=== PATIENT | female | born 1950 | race Caucasian/White ===

== ENCOUNTER 2017-02-15 06:00 | Inpatient (IN) | payer OTHER ==
[~2017-02-15] VITALS: Ht 167.6 cm; Wt 59.9 kg
[2017-02-15 06:00] VITALS: BP 125/70
[~2017-02-15 06:00] MED LIST: NKM
--- NOTE | 2017-02-15 06:42 | Emergency Room Report ---
History of Present Illness General Chief Complaint: Syncope Source: Patient (ROXANA RICH M.D.) Present Illness HPI This is a 66-year-old female with no past medical history. She hasn't seen a doctor for over a couple of years. She present with chief complaint of syncope. Said she got up tonight to go the bathroom and had a syncopal episode. No injury. Does not remember what happened. Just felt weak now. No fever or chills. No nausea no vomiting. No chest pain. (ROXANA RICH M.D.) Allergies: Coded Allergies: No Known Allergies (Unverified , 02/15/17) Patient History Past Medical History: see triage record, old chart reviewed Past Surgical History: other Pertinent Family History: none Social History: Denies: smoking Now: No Immunizations: other Reviewed Nursing Documentation: PMH: Agreed, PSxH: Agreed (ROXANA RICH M.D.) Nursing Documentation-PMH Past Medical History: No Stated History (ROXANA RICH M.D.) Review of Systems Eye: Denies: eye pain, blurred vision ENT: Denies: ear pain, nose congestion, throat swelling Respiratory: Denies: cough, shortness of breath Cardiovascular: Denies: chest pain, palpitations Gastrointestinal: Denies: abdominal pain, diarrhea, nausea, vomiting Musculoskeletal: Denies: back pain, joint pain Skin: Denies: rash Neurological: Denies: headache, numbness Endocrine: Denies: increased thirst, increased urine Hematologic/Lymphatic: Denies: easy bruising All Other Systems: negative except mentioned in HPI (ROXANA RICH M.D.) Physical Exam Vital Signs Date Time Temp Pulse Resp B/P (MAP) Pulse Ox O2 Delivery O2 Flow Rate FiO2 02/15/17 05:47 74 16 125/70 98 Room Air vitals normal Sp02 EP Interpretation: reviewed, normal General Appearance: well appearing, no apparent distress, alert Head: normocephalic, atraumatic Eyes: bilateral eye PERRL, bilateral eye EOMI ENT: hearing grossly normal, normal pharynx Neck: full range of motion, supple, no meningismus Respiratory: chest non-tender, lungs clear, normal breath sounds Cardiovascular #1: no murmur, irregularly irregular Gastrointestinal: normal bowel sounds, non tender, no mass, no organomegaly, no bruit, non-distended Musculoskeletal: back normal, gait/station normal, normal range of motion Psychiatric: mood/affect normal Skin: warm/dry (ROXANA RICH M.D.) Medical Decision Making Diagnostic Impression: Primary Impression: Syncope Qualified Codes: R55 - Syncope and collapse Additional Impression: Atrial fibrillation with normal ventricular rate ER Course Patient presents with syncope and has new-onset atrial fibrillation. Rate is controlled her blood pressure stable. Because of this will admit for further workup. No evidence of ACS, PE, dissection to name a few. I will sign this patient out to Dr. Alvarez. (ROXANA RICH M.D.) ER Course Hospital Course 66-year-old F presents ED s/p syncopal episode. Clinical course Patient initially seen and evaluated by Dr. Rich; please see his note for full history and physical labs reviewed- no leukocytosis, hemoglobin/hematocrit ok, electrolytes okay, troponins negative EKG-afib Chest x-ray- no acute process Case discussed with Dr. Cormier and he agreed to accept the patient to his service for further care and support I. I feel this is a highly complex case requiring extensive working including EKG/Rhythm strip, Xray/CT/US, Blood/urine lab work, repeat exams while in ED, and administration of strong opiates/narcotics for pain control, admission to hospital or close patient follow up. Diagnosis - syncope, afib with normal ventricular rate admitted to telemetry in serious condition Labs Test 02/15/17 06:20 White Blood Count 11.4 K/UL (4.8-10.8) Red Blood Count 4.01 M/UL (4.20-5.40) Hemoglobin 12.7 G/DL (12.0-16.0) Hematocrit 38.9 % (37.0-47.0) Mean Corpuscular Volume 97 FL (80-99) Mean Corpuscular Hemoglobin 31.6 PG (27.0-31.0) Mean Corpuscular Hemoglobin Concent 32.5 G/DL (32.0-36.0) Red Cell Distribution Width 13.0 % (11.6-14.8) Platelet Count 195 K/UL (150-450) Mean Platelet Volume 6.0 FL (6.5-10.1) Neutrophils (%) (Auto) 80.4 % (45.0-75.0) Lymphocytes (%) (Auto) 12.1 % (20.0-45.0) Monocytes (%) (Auto) 6.7 % (1.0-10.0) Eosinophils (%) (Auto) 0.5 % (0.0-3.0) Basophils (%) (Auto) 0.4 % (0.0-2.0) Sodium Level 140 MMOL/L (136-145) Potassium Level 3.7 MMOL/L (3.5-5.1) Chloride Level 104 MMOL/L (98-107) Carbon Dioxide Level 29 MMOL/L (21-32) Anion Gap 7 mmol/L (5-15) Blood Urea Nitrogen 17 mg/dL (7-18) Creatinine 0.7 MG/DL (0.55-1.30) Estimat Glomerular Filtration Rate > 60 mL/min (>60) Glucose Level 98 MG/DL (74-106) Calcium Level 7.6 MG/DL (8.5-10.1) Total Bilirubin 0.5 MG/DL (0.2-1.0) Aspartate Amino Transf (AST/SGOT) 32 U/L (15-37) Alanine Aminotransferase (ALT/SGPT) 29 U/L (12-78) Alkaline Phosphatase 91 U/L (46-116) Total Creatine Kinase 153 U/L (26-308) Creatine Kinase MB 1.9 NG/ML (0.0-3.6) Creatine Kinase MB Relative Index 1.2 Troponin I 0.001 ng/mL (0.000-0.056) Total Protein 6.8 G/DL (6.4-8.2) Albumin 3.7 G/DL (3.4-5.0) Globulin 3.1 g/dL Albumin/Globulin Ratio 1.2 (1.0-2.7) (ÁNGEL ALVAREZ M.D.) EKG Diagnostic Results Rate: normal Rhythm: other - A. fib ST Segments: no acute changes (ROXANA RICH M.D.) Rate: normal Rhythm: other - afib ST Segments: no acute changes ASA given to the pt in ED: No (ÁNGEL ALVAREZ M.D.) Rhythm Strip Diag. Results Rhythm Strip Time: 06:41 EP Interpretation: yes Rate: 62 Rhythm: no PVC's, no ectopy, other - Atrial fib (ROXANA RICH M.D.) EP Interpretation: yes Rhythm: NSR, no PVC's, no ectopy (ÁNGEL ALVAREZ M.D.) Chest X-Ray Diagnostic Results Chest X-Ray Diagnostic Results : Chest X-Ray Ordered: Yes # of Views/Limited/Complete: 1 View Indication: Other EP Interpretation: Yes Interpretation: no consolidation, no effusion, no pneumothorax, no acute cardiopulmonary disease Impression: No acute disease Electronically Signed by: MD JA Vinson TAO M.D.) Chest X-Ray Diagnostic Results : Chest X-Ray Ordered: Yes # of Views/Limited/Complete: 1 View Indication: Other - syncope EP Interpretation: Yes Interpretation: no consolidation, no effusion, no pneumothorax, no acute cardiopulmonary disease Impression: No acute disease Electronically Signed by: Electronically signed by Ángel Alvarez MD (ÁNGEL ALVAREZ M.D.) Last Vital Signs Date Time Temp Pulse Resp B/P (MAP) Pulse Ox O2 Delivery O2 Flow Rate FiO2 02/15/17 06:00 16 125/70 98 Room Air 02/15/17 05:47 74 Status: improved (ROXANA RICH M.D.) Status: improved (ÁNGEL ALVAREZ M.D.) Disposition: ADMITTED INPATIENT Condition: Serious ROXANA RICH M.D. Feb 15, 2017 06:42 ÁNGEL ALVAREZ M.D. Feb 15, 2017 09:14
[2017-02-15 06:54] LABS: BASOPHILS % (AUTO) 0.4 % (0.0-2.0); EOSINOPHILS % (AUTO) 0.5 % (0.0-3.0); HEMATOCRIT 38.9 % (37.0-47.0); HEMOGLOBIN 12.7 G/DL (12.0-16.0); LYMPHOCYTES % (AUTO) 12.1 % (20.0-45.0); MEAN CORPUSCULAR VOLUME 97 FL (80-99); MONOCYTES % (AUTO) 6.7 % (1.0-10.0); NEUTROPHILS % (AUTO) 80.4 % (45.0-75.0); PLATELET COUNT 195 K/UL (150-450); RED BLOOD COUNT 4.01 M/UL (4.20-5.40); WHITE BLOOD COUNT 11.4 K/UL (4.8-10.8)
[2017-02-15 07:04] LABS: ANION GAP 7 mmol/L (5-15); BLOOD UREA NITROGEN 17 mg/dL (7-18); CALCIUM 7.6 MG/DL (8.5-10.1); CARBON DIOXIDE 29 MMOL/L (21-32); CHLORIDE 104 MMOL/L (98-107); CREATININE 0.7 MG/DL (0.55-1.30); POTASSIUM 3.7 MMOL/L (3.5-5.1); SODIUM 140 MMOL/L (136-145)
[2017-02-15 07:24] LABS: ALANINE AMINOTRANSFERASE 29 U/L (12-78); ALBUMIN 3.7 G/DL (3.4-5.0); ALBUMIN/GLOBULIN RATIO 1.2 (1.0-2.7); ALKALINE PHOSPHATASE 91 U/L (46-116); ASPARTATE AMINO TRANSFERASE 32 U/L (15-37); BILIRUBIN,TOTAL 0.5 MG/DL (0.2-1.0); CKMB 1.9 NG/ML (0.0-3.6); CREATINE KINASE 153 U/L (26-308)
[2017-02-15 07:30] VITALS: BP 129/72
[2017-02-15] MEDS ORDERED: Acetaminophen 500mg (ES) tab ORAL ONE (08:15)
[2017-02-15 09:30] VITALS: BP 113/61
[2017-02-15] MEDS ORDERED: Lexiscan 0.4mg/5ml syringe IV PRN (11:15)
--- NOTE | 2017-02-15 11:16 | History & Physical ---
History and Physical History & Physicial Dictated for Int Med-Dr Cormier no. [id number]. IVETT CURRAN Feb 15, 2017 11:16
--- NOTE | 2017-02-15 11:33 | Diagnostic Imaging Report ---
Indication: Dyspnea Comparison: None A single view chest radiograph was obtained. Findings: No definite infiltrate or pulmonary vascular congestion identified. The heart is enlarged. The aorta is mildly enlarged consistent with atherosclerotic vascular disease. The bones are osteopenic. Impression: No acute disease
[2017-02-15 12:00] VITALS: BP 126/91
[2017-02-15] MEDS ORDERED: LORazepam 1mg tab ORAL PRN (12:00)
--- NOTE | 2017-02-15 12:49 | Cardiology Report ---
APPROVED REPORT EKG Measurement Heart [id number] Atrial fibrillation Rightward axis Incomplete right bundle branch block Abnormal ECG
[2017-02-15] MEDS: Aspirin Baby 81mg ORAL SCH (14:11)
[2017-02-15 16:00] VITALS: BP 110/59
--- NOTE | 2017-02-15 16:00 | History and Physical Report ---
DATE OF ADMISSION: 02/15/2017 CHIEF COMPLAINT: The patient is a 66-year-old female who presents with chief complaint of "I passed out." HISTORY OF PRESENT ILLNESS: The patient has history of "arrhythmia." The patient has been followed in [place]. The patient has been taking "natural medication." The patient states she takes some sort of drops for her arrhythmia. The patient was at home this morning approximately 5 a.m. The patient went to the restroom. The patient states she had a normal bowel movement. Then the patient was on the toilet, she began to feel dizzy. The patient states she was seen alternating light and darkness. The patient's daughter lives with her. The patient's daughter states the patient never lost consciousness. The patient was talking the whole time. The patient did not hit the floor. EMS was called. The patient is admitted to [facility] for near syncopal episode. PAST MEDICAL HISTORY: Significant for "arrhythmia," which was diagnosed in [place] in April 2016. PAST SURGICAL HISTORY: The patient denies. CURRENT MEDICATIONS: "Natural drops". ALLERGIES: No known drug allergies. SOCIAL HISTORY: The patient lives with her grown daughter, Sophie Martinez who is present at the bedside. The patient denies tobacco use. The patient admits to rare alcohol use. The patient is single. REVIEW OF SYSTEMS: CONSTITUTIONAL: The patient denies weight loss or weight gain. The patient denies fevers or chills. HEENT: The patient denies ear or throat pain. The patient denies headache. CARDIOVASCULAR: The patient complains of palpitations. The patient denies chest pain. ABDOMEN: The patient denies nausea, vomiting, diarrhea, or constipation. GENITOURINARY: The patient denies dysuria or increased frequency of urination. NEUROMUSCULAR: The patient complains of near syncopal episode as above. The patient complains of vertigo as above. The patient denies seizures or generalized weakness. PHYSICAL EXAMINATION: VITAL SIGNS: Temperature 97.9, respirations 14, pulse 66, blood pressure 129/72, and oxygen saturation 100% on room air. GENERAL: The patient is a well-developed and well-nourished female, in no apparent distress. HEENT: Eyes, pupils equal and responsive to light and accommodation. Extraocular movements are intact. NECK: Supple without lymphadenopathy. CHEST: Lungs are clear to auscultation bilaterally without wheezes or rales. CARDIOVASCULAR: Irregular rhythm and irregular rate. S1 and S2 normal without murmurs, rubs, or gallops. ABDOMEN: Soft, nontender, nondistended. Positive bowel sounds. No evidence of hepatosplenomegaly. Currently, no rebound or guarding noted. EXTREMITIES: Negative for clubbing, cyanosis, or edema. RECTAL/GENITAL: Refused. NEUROLOGIC: Cranial nerves II through XII are grossly intact without focal deficits. Motor strength is 5/5 bilaterally intact. Deep tendon reflexes are 2+, plantar. LABORATORY STUDIES: WBC 11.4, hemoglobin 12.7, hematocrit 38.9, and platelets 195,000. Sodium 140, potassium 3.7, chloride 104, CO2 29, BUN 17, creatinine 0.7, glucose 98. Troponin normal at 0.001. Chest x-ray is pending. An EKG demonstrated atrial fibrillation with ventricular rate of approximately 70 beats per minute. There were no acute ST changes or Q-waves noted. ASSESSMENT: This is a 66-year-old female, 1. Near syncopal episode. 2. Atrial fibrillation. 3. Vertigo. TREATMENT: 1. Atrial fibrillation. A Cardiology consultation has been obtained with Dr. Raul Zamudio. Serial troponin levels will be performed to rule out acute myocardial infarction. A BNP is pending. An echocardiogram is pending. We will follow recommendations of Cardiology, Dr. Zamudio. 2. Near syncope/vertigo. A Neurology consultation has been obtained with Dr. Alba. Differential includes acute cerebrovascular accident versus atrial fibrillation as above. We will follow recommendations of Neurology. Javad Darnell M.D. DR: OMKAR JOB#: [id number] CC:
--- NOTE | 2017-02-15 16:20 | Cardiac Electrophysiology PN ---
Subjective Subjective EP consult dictated. [id number] Needs anticoagulation if OK with Dr Alba. Objective Last 24 Hour Vital Signs Date Time Temp Pulse Resp B/P (MAP) Pulse Ox O2 Delivery O2 Flow Rate FiO2 02/15/17 12:00 93 02/15/17 12:00 98.2 83 21 126/91 96 Room Air 02/15/17 11:00 74 02/15/17 10:37 81 15 117/65 99 Room Air 02/15/17 09:50 97.9 02/15/17 09:30 98.3 78 16 113/61 98 Room Air 02/15/17 07:30 97.9 66 14 129/72 100 Room Air 02/15/17 06:00 16 125/70 98 Room Air 02/15/17 05:47 74 16 125/70 98 Room Air Intake and Output 02/14/17 02/15/17 19:00 07:00 Intake Total 0 ml Balance 0 ml Intake Oral 0 ml Laboratory Tests Test 02/15/17 06:20 02/15/17 14:20 White Blood Count 11.4 K/UL (4.8-10.8) H Red Blood Count 4.01 M/UL (4.20-5.40) L Hemoglobin 12.7 G/DL (12.0-16.0) Hematocrit 38.9 % (37.0-47.0) Mean Corpuscular Volume 97 FL (80-99) Mean Corpuscular Hemoglobin 31.6 PG (27.0-31.0) H Mean Corpuscular Hemoglobin Concent 32.5 G/DL (32.0-36.0) Red Cell Distribution Width 13.0 % (11.6-14.8) Platelet Count 195 K/UL (150-450) Mean Platelet Volume 6.0 FL (6.5-10.1) L Neutrophils (%) (Auto) 80.4 % (45.0-75.0) H Lymphocytes (%) (Auto) 12.1 % (20.0-45.0) L Monocytes (%) (Auto) 6.7 % (1.0-10.0) Eosinophils (%) (Auto) 0.5 % (0.0-3.0) Basophils (%) (Auto) 0.4 % (0.0-2.0) Sodium Level 140 MMOL/L (136-145) Potassium Level 3.7 MMOL/L (3.5-5.1) Chloride Level 104 MMOL/L (98-107) Carbon Dioxide Level 29 MMOL/L (21-32) Anion Gap 7 mmol/L (5-15) Blood Urea Nitrogen 17 mg/dL (7-18) Creatinine 0.7 MG/DL (0.55-1.30) Estimat Glomerular Filtration Rate > 60 mL/min (>60) Glucose Level 98 MG/DL (74-106) Calcium Level 7.6 MG/DL (8.5-10.1) L Total Bilirubin 0.5 MG/DL (0.2-1.0) Aspartate Amino Transf (AST/SGOT) 32 U/L (15-37) Alanine Aminotransferase (ALT/SGPT) 29 U/L (12-78) Alkaline Phosphatase 91 U/L (46-116) Total Creatine Kinase 153 U/L (26-308) Creatine Kinase MB 1.9 NG/ML (0.0-3.6) Creatine Kinase MB Relative Index 1.2 Troponin I 0.001 ng/mL (0.000-0.056) Total Protein 6.8 G/DL (6.4-8.2) Albumin 3.7 G/DL (3.4-5.0) Globulin 3.1 g/dL Albumin/Globulin Ratio 1.2 (1.0-2.7) Thyroid Stimulating Hormone (TSH) 3.890 uiU/mL (0.358-3.740) Prothrombin Time 10.6 SEC (9.30-11.50) Prothromb Time International Ratio 1.0 (0.9-1.1) Activated Partial Thromboplast Time 26 SEC (23-33) RANULFO GROSS Feb 15, 2017 16:20
--- NOTE | 2017-02-15 18:45 | Consultation ---
DATE OF CONSULTATION: 02/15/2017 CARDIOLOGY CONSULTATION REFERRING PHYSICIAN: Pelon Cormier M.D. ADDITIONAL REFERRING PHYSICIAN: Javad Darnell M.D. REASON FOR CONSULTATION: Newly-diagnosed atrial fibrillation and syncope. HISTORY OF PRESENT ILLNESS: The patient is a 66-year-old lady with history of hypertension, history of arrhythmia in the past, she used to follow up in [place], but does not take any medication except for some natural medication, who was home at this morning, around 5 o'clock she went to restroom and then she had a bowel movement. The patient was on the toiler and she felt dizzy and felt like passing out. The patient was brought to the emergency room and was found to be in atrial fibrillation. The patient was admitted to telemetry. Cardiology consult was obtained for further evaluation and management. PAST MEDICAL HISTORY: History of cardiac arrhythmia. The patient denies any hypertension, prior myocardial infarction or congestive heart failure, or known coronary artery disease. MEDICATIONS: At home just natural drops, but no prescribed medications. ALLERGIES: She has no known drug allergies. SOCIAL HISTORY: Lives with her daughter and the family is at the bedside. FAMILY HISTORY: Noncontributory. REVIEW OF SYSTEMS: Review of systems was thoroughly performed and was negative other than what was mentioned in the history of present illness. PHYSICAL EXAMINATION: VITAL SIGNS: Blood pressure is 126/91, pulse 93, respirations 18, and temperature 98.2 degrees. HEAD AND NECK: No JVD. LUNGS: Clear. CARDIOVASCULAR: Irregular S1 and S2 with no gallop. ABDOMEN: Soft. EXTREMITIES: No pitting edema. LABORATORY AND DIAGNOSTIC DATA: EKG showed atrial fibrillation with ventricular response of 80. Her echocardiogram showed ejection fraction of 55%. Laboratories, white count of 11.4, hemoglobin 12.7, hematocrit 38.9, and glucose of 195. Sodium 140, potassium 3.7, BUN of 17, creatinine 0.7, and glucose of 98. TSH is 3.89. ASSESSMENT AND PLAN: Episode of altered level of consciousness, possible syncope in a patient with newly diagnosed atrial fibrillation. The patient is not anticoagulated, however, she was told that she has had irregular heartbeat before in the past. I think she would need a full anticoagulation in view of her female gender and age of 66 and transient ischemic attack like symptoms. Awaiting Neurology and Pulmonology evaluation. At the meantime, start the patient on full dose aspirin and if neurology evaluation is completed, she would need anticoagulation. In view of newly diagnosed atrial fibrillation, we will proceed with nuclear stress test also to make sure ischemia is not part of the picture. Thank you very much, Dr. Cormier, for allowing me to participate in the care of this patient. Please do not hesitate to contact me for any questions regarding my evaluation. Raul Zamudio M.D. DR: JAIME JOB#: [id number] CC:
[2017-02-15 20:37] VITALS: BP 118/78
[2017-02-16 00:50] VITALS: BP 123/60
[2017-02-16 03:55] LABS: BASOPHILS % (AUTO) 0.3 % (0.0-2.0); EOSINOPHILS % (AUTO) 0.2 % (0.0-3.0); HEMATOCRIT 35.6 % (37.0-47.0); HEMOGLOBIN 11.9 G/DL (12.0-16.0); LYMPHOCYTES % (AUTO) 10.1 % (20.0-45.0); MEAN CORPUSCULAR VOLUME 95 FL (80-99); MONOCYTES % (AUTO) 6.8 % (1.0-10.0); NEUTROPHILS % (AUTO) 82.6 % (45.0-75.0); PLATELET COUNT 196 K/UL (150-450); RED BLOOD COUNT 3.76 M/UL (4.20-5.40); RED CELL DISTRIBUTION WIDTH 12.5 % (11.6-14.8); WHITE BLOOD COUNT 6.3 K/UL (4.8-10.8)
[2017-02-16 04:45] VITALS: BP 116/62
[2017-02-16 04:57] LABS: ANION GAP 4 mmol/L (5-15); BLOOD UREA NITROGEN 11 mg/dL (7-18); CALCIUM 7.6 MG/DL (8.5-10.1); CARBON DIOXIDE 30 MMOL/L (21-32); CHLORIDE 102 MMOL/L (98-107); CHOLESTEROL 137 MG/DL (< 200); CREATININE 0.6 MG/DL (0.55-1.30); HDL CHOLESTEROL 72 MG/DL (40-60); POTASSIUM 4.1 MMOL/L (3.5-5.1); SODIUM 136 MMOL/L (136-145); TRIGLYCERIDES 40 MG/DL (30-150)
[2017-02-16 08:00] VITALS: BP 114/62
[2017-02-16] MEDS: Aspirin Baby 81mg ORAL SCH (09:42)
--- NOTE | 2017-02-16 10:43 | Diagnostic Imaging Report ---
APPROVED REPORT CPT Code: 31981 Vascular Symptoms Syncope Doppler Spectral Velocity Analysis RightLeft dICA87/34 cm/sdICA74/21 cm/s mICA85/23 cm/gdUXC911/28 cm/s pICA90/13 cm/spICA91/14 cm/s ECA86/18 cm/sECA86/23 cm/s dCCA67/16 cm/sdCCA85/20 cm/s pCCA90/14 cm/spCCA91/18 cm/s Vert.37/11 cm/sVert.31/11 cm/s Right ICA/CCA ratio1.0Left ICA/CCA ratio1.1 RIGHT SIDE: CCA/BULB- Imaging reveals minimal plaque in the carotid artery and carotid bulb. ICA - Imaging reveals no significant plaque in the internal carotid artery. ECA - Imaging reveals minimal plaque in the external carotid artery. VERTEBRAL - The vertebral artery is patent, without evidence of stenosis or steal. LEFT SIDE: CCA/BULB- Imaging reveals mild irregular plaque in the carotid bulb. ICA - Imaging reveals mild irregular plaque in the internal carotid artery. ECA - Imaging reveals minimal plaque in the external carotid artery. VERTEBRAL - The vertebral artery is patent, without evidence of stenosis or steal.
[2017-02-16 12:00] VITALS: BP 113/63
--- NOTE | 2017-02-16 15:48 | Internal Med Progress Note ---
Subjective Date of Service: Feb 16, 2017 Physician Name Javad Curran Attending Physician Pelon Cormier MD Current Medications Medications (Trade) Dose Ordered Sig/Miles Route PRN Reason Start Time Stop Time Status Last Admin Dose Admin Acetaminophen (Tylenol) 650 mg Q4H PRN ORAL Mild Pain (Pain Scale 1-3) 02/15/17 12:00 03/17/17 11:59 02/15/17 14:11 Aspirin (ASA) 81 mg DAILY ORAL 02/15/17 12:00 03/17/17 11:59 02/16/17 09:42 Dextrose (Dextrose 50%) STAT PRN IV Hypoglycemia 02/15/17 11:15 03/17/17 11:14 Lorazepam (Ativan) 1 mg Q4H PRN ORAL For Anxiety 02/15/17 12:00 02/22/17 11:59 Pantoprazole (Protonix) 40 mg DAILY ORAL 02/15/17 12:00 03/17/17 11:59 02/16/17 09:42 Regadenoson (Lexiscan) 0.4 mg ONCE PRN IV STRESS TEST 02/15/17 11:15 02/17/17 11:14 02/16/17 13:43 Allergies: Coded Allergies: No Known Allergies (Unverified , 02/15/17) ROS Limited/Unobtainable: No Constitutional: Reports: no symptoms HEENT: Reports: no symptoms Cardiovascular: Reports: no symptoms Respiratory: Reports: no symptoms Gastrointestinal/Abdominal: Reports: no symptoms Genitourinary: Reports: no symptoms Neurologic/Psychiatric: Reports: no symptoms Subjective 66 YO F admitted with syncope. Now Atrial Fibrillation. Cover for Int Med-Dr Cormier. Await MRI brain and nuclear cardiac stress test. Await neurology consult. Objective Last Vital Signs Date Time Temp Pulse Resp B/P (MAP) Pulse Ox O2 Delivery O2 Flow Rate FiO2 02/16/17 12:00 97.9 78 18 113/63 98 Room Air General Appearance: WD/WN, no apparent distress, alert EENT: PERRL/EOMI, normal ENT inspection, TMs normal Neck: non-tender, normal alignment, supple, normal inspection Cardiovascular: normal peripheral pulses, normal rate, regular rhythm, no gallop/murmur, no JVD Respiratory/Chest: chest wall non-tender, lungs clear, normal breath sounds, no respiratory distress, no accessory muscle use Abdomen: normal bowel sounds, non tender, soft, no organomegaly, no mass Extremities: normal range of motion, non-tender Neurologic: avionics installer II-XII grossly normal, no motor/sensory deficits Skin: normal pigmentation Laboratory Tests Test 02/15/17 18:55 02/16/17 03:15 Troponin I 0.017 ng/mL (0.000-0.056) 0.005 ng/mL (0.000-0.056) White Blood Count 6.3 K/UL (4.8-10.8) Red Blood Count 3.76 M/UL (4.20-5.40) L Hemoglobin 11.9 G/DL (12.0-16.0) L Hematocrit 35.6 % (37.0-47.0) L Mean Corpuscular Volume 95 FL (80-99) Mean Corpuscular Hemoglobin 31.5 PG (27.0-31.0) H Mean Corpuscular Hemoglobin Concent 33.3 G/DL (32.0-36.0) Red Cell Distribution Width 12.5 % (11.6-14.8) Platelet Count 196 K/UL (150-450) Mean Platelet Volume 6.6 FL (6.5-10.1) Neutrophils (%) (Auto) 82.6 % (45.0-75.0) H Lymphocytes (%) (Auto) 10.1 % (20.0-45.0) L Monocytes (%) (Auto) 6.8 % (1.0-10.0) Eosinophils (%) (Auto) 0.2 % (0.0-3.0) Basophils (%) (Auto) 0.3 % (0.0-2.0) Sodium Level 136 MMOL/L (136-145) Potassium Level 4.1 MMOL/L (3.5-5.1) Chloride Level 102 MMOL/L (98-107) Carbon Dioxide Level 30 MMOL/L (21-32) Anion Gap 4 mmol/L (5-15) L Blood Urea Nitrogen 11 mg/dL (7-18) Creatinine 0.6 MG/DL (0.55-1.30) Estimat Glomerular Filtration Rate > 60 mL/min (>60) Glucose Level 108 MG/DL (74-106) H Calcium Level 7.6 MG/DL (8.5-10.1) L Pro-B-Type Natriuretic Peptide 1360 pg/mL (0-125) H Triglycerides Level 40 MG/DL (30-150) Cholesterol Level 137 MG/DL (< 200) LDL Cholesterol 58 mg/dL (<100) HDL Cholesterol 72 MG/DL (40-60) H Cholesterol/HDL Ratio 1.9 (3.3-4.4) L Intake and Output 02/15/17 02/16/17 19:00 07:00 Intake Total 600 ml Output Total 300 ml Balance 600 ml -300 ml Intake Oral 600 ml Output Urine Total 300 ml Assessment/Plan Problem List: (1) Vertigo Assessment & Plan: ?atrial fibrillation vs transient ischemic attack? Neuro and cardiol workup in progress (2) Syncope Assessment & Plan: Await neuro consult. Cardiology workup in progress (3) Atrial fibrillation with normal ventricular rate Assessment & Plan: Await echocardiogram and cardiac stress test. See cardiology note-may require anticoagulation with history of arrythmia Status: not improved AJVAD CURRAN Feb 16, 2017 15:48
[2017-02-16 16:00] VITALS: BP 108/81
--- NOTE | 2017-02-16 16:00 | Cardiac Electrophysiology PN ---
Assessment/Plan Assessment/Plan 1. Episode of altered level of consciousness, possible syncope in a patient with newly diagnosed atrial fibrillation. The patient is not anticoagulated, however, she was told that she has had irregular heartbeat before in the past. She would need a full anticoagulation in view of her female gender and age of 66 and transient ischemic attack like symptoms. Awaiting Neurology clearance .Nuclear stress test today performed.Nuclear images pending. Start Lopressor 25 bid. Eliquis if OK with Neurologist LIZZETTE RN and Dr Darnell Subjective Subjective No events overnight. Transferred to tele.No chest pain.Remained in atrial fib. Had Lexiscan Cardiolite today. Objective Last 24 Hour Vital Signs Date Time Temp Pulse Resp B/P (MAP) Pulse Ox O2 Delivery O2 Flow Rate FiO2 02/16/17 12:00 97.9 78 18 113/63 98 Room Air 02/16/17 08:00 98.1 82 18 114/62 97 Room Air 02/16/17 04:45 98.4 94 20 116/62 97 Room Air 02/16/17 04:00 87 02/16/17 00:50 98.8 96 18 123/60 100 Room Air 02/16/17 00:02 20 99 Room Air 02/15/17 23:48 87 02/15/17 20:37 97.7 89 18 118/78 98 Room Air 02/15/17 20:34 89 91 02/15/17 20:00 20 98 Room Air 02/15/17 19:35 84 02/15/17 16:00 98.4 85 20 110/59 97 Room Air 02/15/17 16:00 82 Intake and Output 02/15/17 02/16/17 19:00 07:00 Intake Total 600 ml Output Total 300 ml Balance 600 ml -300 ml Intake Oral 600 ml Output Urine Total 300 ml Laboratory Tests Test 02/15/17 18:55 02/16/17 03:15 Troponin I 0.017 ng/mL (0.000-0.056) 0.005 ng/mL (0.000-0.056) White Blood Count 6.3 K/UL (4.8-10.8) Red Blood Count 3.76 M/UL (4.20-5.40) L Hemoglobin 11.9 G/DL (12.0-16.0) L Hematocrit 35.6 % (37.0-47.0) L Mean Corpuscular Volume 95 FL (80-99) Mean Corpuscular Hemoglobin 31.5 PG (27.0-31.0) H Mean Corpuscular Hemoglobin Concent 33.3 G/DL (32.0-36.0) Red Cell Distribution Width 12.5 % (11.6-14.8) Platelet Count 196 K/UL (150-450) Mean Platelet Volume 6.6 FL (6.5-10.1) Neutrophils (%) (Auto) 82.6 % (45.0-75.0) H Lymphocytes (%) (Auto) 10.1 % (20.0-45.0) L Monocytes (%) (Auto) 6.8 % (1.0-10.0) Eosinophils (%) (Auto) 0.2 % (0.0-3.0) Basophils (%) (Auto) 0.3 % (0.0-2.0) Sodium Level 136 MMOL/L (136-145) Potassium Level 4.1 MMOL/L (3.5-5.1) Chloride Level 102 MMOL/L (98-107) Carbon Dioxide Level 30 MMOL/L (21-32) Anion Gap 4 mmol/L (5-15) L Blood Urea Nitrogen 11 mg/dL (7-18) Creatinine 0.6 MG/DL (0.55-1.30) Estimat Glomerular Filtration Rate > 60 mL/min (>60) Glucose Level 108 MG/DL (74-106) H Calcium Level 7.6 MG/DL (8.5-10.1) L Pro-B-Type Natriuretic Peptide 1360 pg/mL (0-125) H Triglycerides Level 40 MG/DL (30-150) Cholesterol Level 137 MG/DL (< 200) LDL Cholesterol 58 mg/dL (<100) HDL Cholesterol 72 MG/DL (40-60) H Cholesterol/HDL Ratio 1.9 (3.3-4.4) L Objective HEAD AND NECK: No JVD. LUNGS: Clear. CARDIOVASCULAR: Irregular S1 and S2 with no gallop. ABDOMEN: Soft. EXTREMITIES: No pitting edema. RANULFO GROSS Feb 16, 2017 16:00
--- NOTE | 2017-02-16 17:02 | Diagnostic Imaging Report ---
Indications: 66-year-old female with chest pain Technique: Single day single isotope protocol utilized. Initially, resting images obtained using IV administration 10.6 millicuries 99M technetium Myoview. Subsequently, patient underwent lexiscan stress testing. See cardiology report for details. During adenosine infusion, IV administration 31.1 mCi 99 M technetium Myoview. SPECT and planar images obtained. SPECT images gated to 8 phases of the cardiac cycle were also obtained, and reformatted into cine images for evaluation of ejection fraction. Comparison: none Findings: Per cardiology report, patient experienced no symptoms. Per cardiology report, resting EKG demonstrates atrial fibrillation. Less than [address] depression was noted with infusion. Imaging demonstrates normal post stress perfusion and normal resting perfusion. No fixed nor reversible poststress perfusion defects are demonstrated. Normal cardiac chamber size.. Calculated post stress ejection fraction 74%. No focal wall motion abnormality Impression: Nonischemic clinical response to pharmacologic stress, per cardiology report Nonischemic electrocardiographic response to pharmacologic stress, per cardiology report No imaging findings to suggest ischemia, at level of stress achieved. Calculated post stress ejection fraction greater than 70%
[2017-02-16 20:17] VITALS: BP 126/69
[2017-02-16] MEDS: Metoprolol 25mg tab ORAL SCH (21:27)
[2017-02-17] VITALS: BP 102/62
[2017-02-17 04:00] VITALS: BP 102/55
[2017-02-17 07:53] VITALS: BP 98/52
[2017-02-17 08:20] LABS: BASOPHILS % (AUTO) 1.1 % (0.0-2.0); HEMATOCRIT 38.5 % (37.0-47.0); LYMPHOCYTES % (AUTO) 43.5 % (20.0-45.0); MEAN CORPUSCULAR VOLUME 97 FL (80-99); MONOCYTES % (AUTO) 14.6 % (1.0-10.0); NEUTROPHILS % (AUTO) 39.8 % (45.0-75.0); PLATELET COUNT 214 K/UL (150-450); RED BLOOD COUNT 3.99 M/UL (4.20-5.40); RED CELL DISTRIBUTION WIDTH 12.9 % (11.6-14.8); WHITE BLOOD COUNT 4.7 K/UL (4.8-10.8)
[2017-02-17] MEDS: Aspirin Baby 81mg ORAL SCH (08:42)
[2017-02-17] MEDS: Metoprolol 25mg tab ORAL SCH (08:43)
[2017-02-17 08:44] LABS: ANION GAP 6 mmol/L (5-15); BLOOD UREA NITROGEN 9 mg/dL (7-18); CALCIUM 7.9 MG/DL (8.5-10.1); CARBON DIOXIDE 29 MMOL/L (21-32); CHLORIDE 102 MMOL/L (98-107); CREATININE 0.6 MG/DL (0.55-1.30); POTASSIUM 4.1 MMOL/L (3.5-5.1); SODIUM 137 MMOL/L (136-145)
[2017-02-17 12:00] VITALS: BP 110/74
--- NOTE | 2017-02-17 12:18 | Diagnostic Imaging Report ---
Indication: Syncope. Vertigo. Technique: Contiguous 5 mm thick transaxial imaging of the head obtained in a Siemens Sensation [address] scanner before and after intravenous administration of non-ionic contrast. Soft tissue and bone windows generated. Total Dose length Product (DLP): 2852.[address] Dose Index Volume (CTDIvol): 70.38,70.38 99.02, 16.5, 0.15 mGy Comparison: none Findings: Mild, nonspecific, white matter hypoattenuation is noted throughout the brain consistent with chronic small vessel disease. No abnormal enhancement identified. There is no midline shift, edema, acute hemorrhage, mass effect, or abnormal extra-axial fluid collections. Bones and extra osseous soft tissues are unremarkable. Impression: No acute intracranial abnormalities. Nonspecific, mild, patchy white matter hypoattenuation probably due to chronic small vessel disease. The CT scanner at [facility] is accredited by the [employer] and the scans are performed using dose optimization techniques as appropriate to a performed exam including Automatic Exposure control.
--- NOTE | 2017-02-17 12:37 | Diagnostic Imaging Report ---
Indication: Syncope. Vertigo. Technique: The head was imaged in a 1.5 Theresa magnet. Sequences obtained include sagittal and axial T1 FLAIR, axial T2 fast spin echo with fat saturation, axial T2 FLAIR, diffusion and ADC map. Comparison: None Findings: Mild, nonspecific T2 hyperintensity noted within white matter. This may be due to chronic small vessel disease. There is no restricted diffusion. Goldsmith-white differentiation is normal. There is no mass effect, midline shift, edema, or hemorrhage. There are no abnormal extra-axial or intra-axial fluid collections. The corpus callosum and sella are unremarkable. The brainstem and cerebellum are unremarkable. Bone marrow signal within the visualized osseous structures appears age appropriate and unremarkable otherwise. Impression: No acute intracranial findings. Mild white matter signal abnormalities likely chronic small vessel disease given the patient's age.
--- NOTE | 2017-02-17 14:04 | Consultation ---
Consult Note Consult Note NEUROLOGY CONSULTATION: Full note dictated #[id number] 66 y/o, RH, HF with a few month H/O an irregular heart beat treated with natural medicines. She was functioning well until 02/14/17 when she went to the bathroom and felt dizzy, lightheaded, had visual blurring and felt she may pass out. [place] [facility] [place] has since been [place]. Cardiac monitoring has revealed constant a-fib with variable ventricular rates. ON EXAM: Normal except for globally diminished reflexes. 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 IMPRESSION: Near syncopal episode due to cardiac arrhythmia. REC: Rx of cardiac arrhythmia as per Dr. Zamudio. Anticoagulation for stroke prophylaxis. W/U diminished DTRs with labs. Jono Wilburn M.D., M.S.P.H. JONO WILBURN Feb 17, 2017 14:04
[2017-02-17 16:00] VITALS: BP 107/57
--- NOTE | 2017-02-17 16:10 | Internal Med Progress Note ---
Subjective Date of Service: Feb 17, 2017 Physician Name Javad Curran Attending Physician Pelon Cormier MD Current Medications Medications (Trade) Dose Ordered Sig/Miles Route PRN Reason Start Time Stop Time Status Last Admin Dose Admin Acetaminophen (Tylenol) 650 mg Q4H PRN ORAL Mild Pain (Pain Scale 1-3) 02/15/17 12:00 03/17/17 11:59 02/16/17 19:05 Aspirin (ASA) 81 mg DAILY ORAL 02/15/17 12:00 03/17/17 11:59 02/17/17 08:42 Dextrose (Dextrose 50%) STAT PRN IV Hypoglycemia 02/15/17 11:15 03/17/17 11:14 Lorazepam (Ativan) 1 mg Q4H PRN ORAL For Anxiety 02/15/17 12:00 02/22/17 11:59 Metoprolol Tartrate (Lopressor) 25 mg Q12HR ORAL 02/16/17 21:00 03/18/17 20:59 02/16/17 21:27 Pantoprazole (Protonix) 40 mg DAILY ORAL 02/15/17 12:00 03/17/17 11:59 02/17/17 08:42 Allergies: Coded Allergies: No Known Allergies (Unverified , 02/15/17) ROS Limited/Unobtainable: No Constitutional: Reports: no symptoms HEENT: Reports: no symptoms Cardiovascular: Reports: no symptoms Respiratory: Reports: no symptoms Gastrointestinal/Abdominal: Reports: no symptoms Genitourinary: Reports: no symptoms Neurologic/Psychiatric: Reports: no symptoms Subjective 66 YO F admitted with syncope. Now Atrial Fibrillation. Cover for Int Med-Dr Cormier. Bradycardic today Objective Last Vital Signs Date Time Temp Pulse Resp B/P (MAP) Pulse Ox O2 Delivery O2 Flow Rate FiO2 02/17/17 12:00 97.4 81 18 110/74 99 Room Air Laboratory Tests Test 02/17/17 07:25 White Blood Count 4.7 K/UL (4.8-10.8) L Red Blood Count 3.99 M/UL (4.20-5.40) L Hemoglobin 13.0 G/DL (12.0-16.0) Hematocrit 38.5 % (37.0-47.0) Mean Corpuscular Volume 97 FL (80-99) Mean Corpuscular Hemoglobin 32.5 PG (27.0-31.0) H Mean Corpuscular Hemoglobin Concent 33.7 G/DL (32.0-36.0) Red Cell Distribution Width 12.9 % (11.6-14.8) Platelet Count 214 K/UL (150-450) Mean Platelet Volume 6.4 FL (6.5-10.1) L Neutrophils (%) (Auto) 39.8 % (45.0-75.0) L Lymphocytes (%) (Auto) 43.5 % (20.0-45.0) Monocytes (%) (Auto) 14.6 % (1.0-10.0) H Eosinophils (%) (Auto) 1.0 % (0.0-3.0) Basophils (%) (Auto) 1.1 % (0.0-2.0) Erythrocyte Sedimentation Rate Pending Sodium Level 137 MMOL/L (136-145) Potassium Level 4.1 MMOL/L (3.5-5.1) Chloride Level 102 MMOL/L (98-107) Carbon Dioxide Level 29 MMOL/L (21-32) Anion Gap 6 mmol/L (5-15) Blood Urea Nitrogen 9 mg/dL (7-18) Creatinine 0.6 MG/DL (0.55-1.30) Estimat Glomerular Filtration Rate > 60 mL/min (>60) Glucose Level 94 MG/DL (74-106) Hemoglobin A1c Pending Calcium Level 7.9 MG/DL (8.5-10.1) L Troponin I 0.007 ng/mL (0.000-0.056) Pro-B-Type Natriuretic Peptide 1120 pg/mL (0-125) H Vitamin B12 Level Pending Vitamin D 25-Hydroxy Pending 25-Hydroxy Vitamin D2 Pending 25-Hydroxy Vitamin D3 Pending Folate Pending Free Thyroxine Pending Free Triiodothyronine Pending Rapid Plasma Reagin Pending Intake and Output 02/16/17 02/17/17 19:00 07:00 Intake Total 440 ml Balance 440 ml Intake Oral 440 ml # Voids 2 1 Objective General Appearance: WD/WN, no apparent distress, alert EENT: PERRL/EOMI, normal ENT inspection, TMs normal Neck: non-tender, normal alignment, supple, normal inspection Cardiovascular: normal peripheral pulses, bradycardic, Irregular rhythm, no gallop/murmur, no JVD Respiratory/Chest: chest wall non-tender, lungs clear, normal breath sounds, no respiratory distress, no accessory muscle use Abdomen: normal bowel sounds, non tender, soft, no organomegaly, no mass Extremities: normal range of motion, non-tender 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 Neuro and cardiol workup negative so far. (2) Syncope Assessment & Plan: Await neuro consult. Cardiology workup in progress (3) Atrial fibrillation with normal ventricular rate Assessment & Plan: Now bradycardic ?decrease lopressor to 12.5 mg BID? See cardiology note-may require anticoagulation with history of arrythmia Status: progressing JAVAD CURRAN Feb 17, 2017 16:10
--- NOTE | 2017-02-17 17:31 | Cardiac Electrophysiology PN ---
Assessment/Plan Assessment/Plan 1. Episode of altered level of consciousness, possible syncope in a patient with newly diagnosed atrial fibrillation. She would need a full anticoagulation in view of her female gender and age of 66 and transient ischemic attack like symptom .Nuclear stress test showed no ischemia. On Lopressor. Start Xarelto 20 mg daily 2. Mild bradycardia. Lowest 48. Now in 70s. Decrease Lopressor to 12.5 bid DW RN and Dr Darnell Subjective Subjective No chest pain.Remained in atrial fib. Had celina episodes overnight. Objective Last 24 Hour Vital Signs Date Time Temp Pulse Resp B/P (MAP) Pulse Ox O2 Delivery O2 Flow Rate FiO2 02/17/17 12:00 97.4 81 18 110/74 99 Room Air 02/17/17 12:00 81 02/17/17 08:43 50 112/74 02/17/17 08:25 50 02/17/17 08:25 67 73 66 02/17/17 07:53 97.5 61 18 98/52 100 Room Air 02/17/17 04:00 97.5 63 20 102/55 100 Room Air 02/17/17 03:42 54 02/17/17 00:00 97.9 67 20 102/62 97 Room Air 02/16/17 23:42 59 02/16/17 21:27 77 126/69 02/16/17 21:05 67 02/16/17 20:17 98.1 64 20 126/69 97 Room Air Intake and Output 02/16/17 02/17/17 19:00 07:00 Intake Total 440 ml Balance 440 ml Intake Oral 440 ml # Voids 2 1 Laboratory Tests Test 02/17/17 07:25 White Blood Count 4.7 K/UL (4.8-10.8) L Red Blood Count 3.99 M/UL (4.20-5.40) L Hemoglobin 13.0 G/DL (12.0-16.0) Hematocrit 38.5 % (37.0-47.0) Mean Corpuscular Volume 97 FL (80-99) Mean Corpuscular Hemoglobin 32.5 PG (27.0-31.0) H Mean Corpuscular Hemoglobin Concent 33.7 G/DL (32.0-36.0) Red Cell Distribution Width 12.9 % (11.6-14.8) Platelet Count 214 K/UL (150-450) Mean Platelet Volume 6.4 FL (6.5-10.1) L Neutrophils (%) (Auto) 39.8 % (45.0-75.0) L Lymphocytes (%) (Auto) 43.5 % (20.0-45.0) Monocytes (%) (Auto) 14.6 % (1.0-10.0) H Eosinophils (%) (Auto) 1.0 % (0.0-3.0) Basophils (%) (Auto) 1.1 % (0.0-2.0) Erythrocyte Sedimentation Rate 12 MM/HR (0-30) Sodium Level 137 MMOL/L (136-145) Potassium Level 4.1 MMOL/L (3.5-5.1) Chloride Level 102 MMOL/L (98-107) Carbon Dioxide Level 29 MMOL/L (21-32) Anion Gap 6 mmol/L (5-15) Blood Urea Nitrogen 9 mg/dL (7-18) Creatinine 0.6 MG/DL (0.55-1.30) Estimat Glomerular Filtration Rate > 60 mL/min (>60) Glucose Level 94 MG/DL (74-106) Hemoglobin A1c 5.8 % (4.3-6.0) Calcium Level 7.9 MG/DL (8.5-10.1) L Troponin I 0.007 ng/mL (0.000-0.056) Pro-B-Type Natriuretic Peptide 1120 pg/mL (0-125) H Vitamin B12 Level 569 PG/ML (193-986) Vitamin D 25-Hydroxy Pending 25-Hydroxy Vitamin D2 Pending 25-Hydroxy Vitamin D3 Pending Folate 17.4 NG/ML (8.6-58.9) Free Thyroxine 0.90 NG/DL (0.76-1.46) Free Triiodothyronine 1.9 pg/mL (2.3-4.2) L Rapid Plasma Reagin Pending Objective HEAD AND NECK: No JVD. LUNGS: Clear. CARDIOVASCULAR: Irregular S1 and S2 with no gallop. ABDOMEN: Soft. EXTREMITIES: No pitting edema. RANULFO GROSS Feb 17, 2017 17:31
[2017-02-17] MEDS ORDERED: Xarelto 10mg tab ORAL SCH (18:30)
[2017-02-17 20:51] VITALS: BP 109/65
[2017-02-17] MEDS ORDERED: Metoprolol 25mg tab ORAL SCH (21:00)
--- NOTE | 2017-02-17 21:00 | Consultation ---
DATE OF CONSULTATION: 02/17/2017 NEUROLOGY CONSULTATION CONSULTING PHYSICIAN: Terry Schaefer M.D. REQUESTING PHYSICIAN: Javad Darnell M.D. HISTORY: Ms Vita Meade is a 66-year-old, right-handed, lady, who has a relatively benign past history other than having an irregular heartbeat for the last few months for which she takes some natural medicines. She was functioning relatively well until the morning of 02/14/2017 when she went to the bathroom. She was sitting on the commode and felt dizzy, lightheaded, had visual blurring and felt that she may pass out. She did not actually pass out. She denies any similar symptoms in the past. As a result of these symptoms, she was brought into the [facility] Emergency Room and has since been admitted. Cardiac monitoring has revealed constant atrial fibrillation with varying ventricular rates. She has had no further episodes of dizziness, lightheadedness, blurry vision, or a sensation that she may pass out. She also denies any palpitations. She denies any weakness on one side or the other, numbness on one side or the other, problems with speech, problems with language, problems with vision, or any other problems at this point in time. PAST MEDICAL HISTORY: Significant for irregular heart beat. FAMILY HISTORY: Nothing significant. PERSONAL HISTORY: Home: She lives with family members. 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 Habits: There is no history of tobacco or illicit drug use. She does have a rare alcoholic drink. PRESENT MEDICATIONS: Include metoprolol, aspirin, Tylenol, Protonix, and Ativan as needed. PHYSICAL EXAMINATION: GENERAL: She is a well-developed, well-nourished, pleasant lady, lying in bed, in no acute distress. VITAL SIGNS: Pulse 81 per minute and irregularly irregular, blood pressure 110/74 mmHg, respirations 18 per minute, and temperature 97.4 degrees Fahrenheit. HEAD: Normocephalic and atraumatic. NECK: No neck rigidity was observed. EENT EXAMINATION: Benign. NEUROLOGIC EXAMINATION: MENTAL STATUS EXAMINATION: She was awake and alert. She was oriented to person, place, and time. She was able to recall 3/3 words immediately after 1 minute and after 3 minutes. She was able to remember presidents, Trump through Obama only. Her mathematical skills were fairly good. Her visuospatial function was preserved. SPEECH: She had no dysarthria. LANGUAGE: She had no aphasia in Sami as per her daughter who was interpreting for her. CRANIAL NERVE EXAMINATION: II: The visual monroy were intact on confrontation testing. III, IV & : The external ocular movements were full and the pupils 3 mm in diameter, equal, round, regular, and reactive to light. V: She had normal facial sensations and the temporales, masseters, and pterygoids function normally. VII: She had normal facial expressions and no facial asymmetry. VIII: She was able to hear well bilaterally and had no nystagmus. IX: The palate moved symmetrically on phonation. X: She had no hoarseness of voice. XI: The sternocleidomastoids and trapezii functioned normally. XII: The tongue was in the midline without any fasciculations or atrophy. MOTOR SYSTEM: The tone was normal in all four extremities. Examination of muscle mass revealed no focal wasting. Examination of power revealed grade 5/5 power in all muscle groups tested. SENSORY EXAMINATION: She had intact sensations to pinprick, light touch, and graphesthesia. COORDINATION: She performed well on [id number] and [id number] testing. REFLEXES: 1+ and bilaterally symmetrical at the biceps, triceps, brachioradialis, and knees, 0 at both ankles. The plantar responses were flexor bilaterally. STANCE: She had a normal stance. GAIT: She had a normal gait. DIAGNOSTIC IMPRESSION: 1. Ms Vita Meade is a 66-year-old, right-handed, lady, who has had an irregular heartbeat for the last few months, which she treats with natural medicine. She was functioning relatively well until the morning of 02/14/2017 when she went to the bathroom felt dizzy, lightheaded, had visual blurring and had a feeling that she may pass out. Since then, she has been hospitalized and has had no further similar symptoms. She however has been noted to be in constant atrial fibrillation with a variable ventricular rate. 2. The neurological examination at this time is essentially benign except for globally diminished deep tendon reflexes. 3. An MRI scan of the brain reveals multiple old deep white matter lesions but no acute pathology. 4. Laboratory data revealed relatively normal CBC, a chemistry panel that is also relatively normal except for a proBNP elevated to 1120, normal cholesterol, elevated TSH and a normal INR at 1.0. 5. The patient's history and neurological examination are most compatible with an episode of near syncope most probably related to her cardiac arrhythmia. RECOMMENDATIONS: 1. Agree with management thus far. 2. Management of cardiac arrhythmia as per Dr. Zamudio. 3. Anticoagulation for stroke prophylaxis should be considered. 4. The patient will be worked up thoroughly for other treatable causes of diminished deep tendon reflexes, which may represent a mild neuropathic process. 5. A carotid duplex should be performed for management of near syncope. Thank you for entrusting me with the care of Ms Meade. I shall follow her with you. Terry Schaefer M.D., M.S.P.H. DR: MIKAELA JOB#: [id number] [employer]
[2017-02-18] VITALS: BP 107/64
[2017-02-18] MEDS ORDERED: LORazepam 1mg tab ORAL PRN
[2017-02-18 04:00] VITALS: BP 121/61
[2017-02-18 05:31] VITALS: BP 121/64
[2017-02-18 07:42] LABS: BASOPHILS % (AUTO) 0.5 % (0.0-2.0); EOSINOPHILS % (AUTO) 1.1 % (0.0-3.0); HEMATOCRIT 36.1 % (37.0-47.0); HEMOGLOBIN 12.5 G/DL (12.0-16.0); MEAN CORPUSCULAR VOLUME 96 FL (80-99); MONOCYTES % (AUTO) 10.3 % (1.0-10.0); NEUTROPHILS % (AUTO) 52.2 % (45.0-75.0); PLATELET COUNT 219 K/UL (150-450); RED BLOOD COUNT 3.76 M/UL (4.20-5.40); RED CELL DISTRIBUTION WIDTH 12.6 % (11.6-14.8); WHITE BLOOD COUNT 5.1 K/UL (4.8-10.8)
[2017-02-18 07:56] LABS: ANION GAP 9 mmol/L (5-15); BLOOD UREA NITROGEN 9 mg/dL (7-18); CALCIUM 7.9 MG/DL (8.5-10.1); CARBON DIOXIDE 26 MMOL/L (21-32); CHLORIDE 102 MMOL/L (98-107); CREATININE 0.5 MG/DL (0.55-1.30); SODIUM 137 MMOL/L (136-145)
[2017-02-18 08:00] VITALS: BP 123/86
[2017-02-18] MEDS ORDERED: Aspirin Baby 81mg ORAL SCH (09:00)
[2017-02-18] MEDS ORDERED: Metoprolol 25mg tab ORAL SCH (09:00)
[2017-02-18 12:00] VITALS: BP 135/68
--- NOTE | 2017-02-18 12:55 | Cardiac Electrophysiology PN ---
Assessment/Plan Assessment/Plan 1. Episode of altered level of consciousness, possible syncope in a patient with newly diagnosed atrial fibrillation. She would need a full anticoagulation in view of her female gender and age of 66 and transient ischemic attack like symptom .Nuclear stress test showed no ischemia. On Lopressor and Xarelto 20 mg daily 2. Mild bradycardia. Lowest 48. Now in 70s.Better on Lopressor 12.5 bid DW RN OK to DC Subjective Subjective No chest pain.Remained in atrial fib with controlled rate while on tele. Tele DCed now. Objective Last 24 Hour Vital Signs Date Time Temp Pulse Resp B/P (MAP) Pulse Ox O2 Delivery O2 Flow Rate FiO2 02/18/17 09:06 81 123/64 02/18/17 08:00 97.4 81 18 123/86 98 Room Air 02/18/17 05:31 97.6 61 18 121/64 98 Room Air 02/18/17 04:00 97.6 61 18 121/61 98 Room Air 02/18/17 00:00 97.4 78 18 107/64 98 Room Air 02/17/17 21:02 63 126/73 02/17/17 20:51 97.9 75 18 109/65 98 Room Air 02/17/17 20:00 81 02/17/17 16:00 81 02/17/17 16:00 97.2 85 18 107/57 Room Air Intake and Output 02/17/17 02/18/17 19:00 07:00 Intake Total 720 ml 240 ml Balance 720 ml 240 ml Intake Oral 720 ml 240 ml # Voids 1 1 Laboratory Tests Test 02/18/17 04:45 White Blood Count 5.1 K/UL (4.8-10.8) Red Blood Count 3.76 M/UL (4.20-5.40) L Hemoglobin 12.5 G/DL (12.0-16.0) Hematocrit 36.1 % (37.0-47.0) L Mean Corpuscular Volume 96 FL (80-99) Mean Corpuscular Hemoglobin 33.1 PG (27.0-31.0) H Mean Corpuscular Hemoglobin Concent 34.5 G/DL (32.0-36.0) Red Cell Distribution Width 12.6 % (11.6-14.8) Platelet Count 219 K/UL (150-450) Mean Platelet Volume 6.9 FL (6.5-10.1) Neutrophils (%) (Auto) 52.2 % (45.0-75.0) Lymphocytes (%) (Auto) 36.0 % (20.0-45.0) Monocytes (%) (Auto) 10.3 % (1.0-10.0) H Eosinophils (%) (Auto) 1.1 % (0.0-3.0) Basophils (%) (Auto) 0.5 % (0.0-2.0) Sodium Level 137 MMOL/L (136-145) Potassium Level 4.0 MMOL/L (3.5-5.1) Chloride Level 102 MMOL/L (98-107) Carbon Dioxide Level 26 MMOL/L (21-32) Anion Gap 9 mmol/L (5-15) Blood Urea Nitrogen 9 mg/dL (7-18) Creatinine 0.5 MG/DL (0.55-1.30) L Estimat Glomerular Filtration Rate > 60 mL/min (>60) Glucose Level 100 MG/DL (74-106) Calcium Level 7.9 MG/DL (8.5-10.1) L Objective HEAD AND NECK: No JVD. LUNGS: Clear. CARDIOVASCULAR: Irregular S1 and S2 with no gallop. ABDOMEN: Soft. EXTREMITIES: No pitting edema. RANULFO GROSS Feb 18, 2017 12:55
--- NOTE | 2017-02-18 15:28 | Internal Med Progress Note ---
Subjective Date of Service: Feb 18, 2017 Physician Name Javad Curran Attending Physician Pelon Cormier MD Current Medications Medications (Trade) Dose Ordered Sig/Miles Route PRN Reason Start Time Stop Time Status Last Admin Dose Admin Acetaminophen (Tylenol) 650 mg Q4H PRN ORAL Mild Pain (Pain Scale 1-3) 02/18/17 00:00 03/17/17 11:59 Aspirin (ASA) 81 mg DAILY ORAL 02/18/17 09:00 03/17/17 11:59 02/18/17 09:06 Dextrose (Dextrose 50%) STAT PRN IV Hypoglycemia 02/18/17 11:15 03/17/17 11:14 Lorazepam (Ativan) 1 mg Q4H PRN ORAL For Anxiety 02/18/17 00:00 02/22/17 11:59 Metoprolol Tartrate (Lopressor) 12.5 mg Q12HR ORAL 02/18/17 09:00 03/19/17 20:59 02/18/17 09:06 Pantoprazole (Protonix) 40 mg DAILY ORAL 02/18/17 09:00 03/17/17 11:59 02/18/17 09:06 Rivaroxaban (Xarelto) 20 mg QPM ORAL 02/18/17 16:30 03/19/17 18:29 Allergies: Coded Allergies: No Known Allergies (Unverified , 02/15/17) ROS Limited/Unobtainable: No Constitutional: Reports: no symptoms HEENT: Reports: no symptoms Cardiovascular: Reports: no symptoms Respiratory: Reports: no symptoms Gastrointestinal/Abdominal: Reports: no symptoms Genitourinary: Reports: no symptoms Neurologic/Psychiatric: Reports: no symptoms Subjective 66 YO F admitted with syncope. Now Atrial Fibrillation. Cover for Int Med-Dr Cormier. Objective Last Vital Signs Date Time Temp Pulse Resp B/P (MAP) Pulse Ox O2 Delivery O2 Flow Rate FiO2 02/18/17 12:00 97.0 86 20 135/68 98 Room Air Laboratory Tests Test 02/18/17 04:45 White Blood Count 5.1 K/UL (4.8-10.8) Red Blood Count 3.76 M/UL (4.20-5.40) L Hemoglobin 12.5 G/DL (12.0-16.0) Hematocrit 36.1 % (37.0-47.0) L Mean Corpuscular Volume 96 FL (80-99) Mean Corpuscular Hemoglobin 33.1 PG (27.0-31.0) H Mean Corpuscular Hemoglobin Concent 34.5 G/DL (32.0-36.0) Red Cell Distribution Width 12.6 % (11.6-14.8) Platelet Count 219 K/UL (150-450) Mean Platelet Volume 6.9 FL (6.5-10.1) Neutrophils (%) (Auto) 52.2 % (45.0-75.0) Lymphocytes (%) (Auto) 36.0 % (20.0-45.0) Monocytes (%) (Auto) 10.3 % (1.0-10.0) H Eosinophils (%) (Auto) 1.1 % (0.0-3.0) Basophils (%) (Auto) 0.5 % (0.0-2.0) Sodium Level 137 MMOL/L (136-145) Potassium Level 4.0 MMOL/L (3.5-5.1) Chloride Level 102 MMOL/L (98-107) Carbon Dioxide Level 26 MMOL/L (21-32) Anion Gap 9 mmol/L (5-15) Blood Urea Nitrogen 9 mg/dL (7-18) Creatinine 0.5 MG/DL (0.55-1.30) L Estimat Glomerular Filtration Rate > 60 mL/min (>60) Glucose Level 100 MG/DL (74-106) Calcium Level 7.9 MG/DL (8.5-10.1) L Intake and Output 02/17/17 02/18/17 19:00 07:00 Intake Total 720 ml 240 ml Balance 720 ml 240 ml Intake Oral 720 ml 240 ml # Voids 1 1 Objective General Appearance: WD/WN, no apparent distress, alert EENT: PERRL/EOMI, normal ENT inspection, TMs normal Neck: non-tender, normal alignment, supple, normal inspection Cardiovascular: normal peripheral pulses, bradycardic, Irregular rhythm, no gallop/murmur, no JVD Respiratory/Chest: chest wall non-tender, lungs clear, normal breath sounds, no respiratory distress, no accessory muscle use Abdomen: normal bowel sounds, non tender, soft, no organomegaly, no mass Extremities: normal range of motion, non-tender 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 Neuro and cardiol workup negative so far. (2) Syncope Assessment & Plan: Await neuro consult. Cardiology workup in progress (3) Atrial fibrillation with normal ventricular rate Assessment & Plan: Bradycardia improved with decrease lopressor to 12.5 mg BID. Continue Xarelto-See cardiology note Status: stable JAVAD CURRAN Feb 18, 2017 15:28
[2017-02-18] MEDS ORDERED: XARELTO10 MG ORAL (15:31)
[2017-02-18] MEDS ORDERED: ASPIRIN81 MG ORAL (15:31)
[2017-02-18] MEDS ORDERED: LOPRESSOR25 M1 ORAL (15:31)
--- NOTE | 2017-02-18 15:50 | Neurology Progress Note ---
Interim History Interim History Interim History Ms. Meade feels well. She is minimally light headed when she stands or walks. She denies any new neurologic symptoms. She denies any palpitations. She is eager to go home. Review of Systems Neuro Review of Systems Benign. Objective Physical Exam Last Vital Signs Date Time Temp Pulse Resp B/P (MAP) Pulse Ox O2 Delivery O2 Flow Rate FiO2 02/18/17 12:00 97.0 86 20 135/68 98 Room Air Laboratory Tests Test 02/18/17 04:45 White Blood Count 5.1 K/UL (4.8-10.8) Red Blood Count 3.76 M/UL (4.20-5.40) L Hemoglobin 12.5 G/DL (12.0-16.0) Hematocrit 36.1 % (37.0-47.0) L Mean Corpuscular Volume 96 FL (80-99) Mean Corpuscular Hemoglobin 33.1 PG (27.0-31.0) H Mean Corpuscular Hemoglobin Concent 34.5 G/DL (32.0-36.0) Red Cell Distribution Width 12.6 % (11.6-14.8) Platelet Count 219 K/UL (150-450) Mean Platelet Volume 6.9 FL (6.5-10.1) Neutrophils (%) (Auto) 52.2 % (45.0-75.0) Lymphocytes (%) (Auto) 36.0 % (20.0-45.0) Monocytes (%) (Auto) 10.3 % (1.0-10.0) H Eosinophils (%) (Auto) 1.1 % (0.0-3.0) Basophils (%) (Auto) 0.5 % (0.0-2.0) Sodium Level 137 MMOL/L (136-145) Potassium Level 4.0 MMOL/L (3.5-5.1) Chloride Level 102 MMOL/L (98-107) Carbon Dioxide Level 26 MMOL/L (21-32) Anion Gap 9 mmol/L (5-15) Blood Urea Nitrogen 9 mg/dL (7-18) Creatinine 0.5 MG/DL (0.55-1.30) L Estimat Glomerular Filtration Rate > 60 mL/min (>60) Glucose Level 100 MG/DL (74-106) Calcium Level 7.9 MG/DL (8.5-10.1) L Neurologic Exam Objective PHYSICAL EXAMINATION: GENERAL: She is a well-developed, well-nourished, pleasant lady, lying in bed, in no acute distress. HEAD: Normocephalic and atraumatic. NECK: No neck rigidity was observed. EENT EXAMINATION: Benign. NEUROLOGIC EXAMINATION: MENTAL STATUS EXAMINATION: She was awake and alert. She was oriented to person, place, and time. She was able to recall 3/3 words immediately after 1 minute and after 3 minutes. She was able to remember presidents, Trump through Obama only. Her mathematical skills were fairly good. Her visuospatial function was preserved. SPEECH: She had no dysarthria. LANGUAGE: She had no aphasia in Serbian. CRANIAL NERVE EXAMINATION: II: The visual monroy were intact on confrontation testing. III, IV & : The external ocular movements were full and the pupils 3 mm in diameter, equal, round, regular, and reactive to light. V: She had normal facial sensations and the temporales, masseters, and pterygoids function normally. VII: She had normal facial expressions and no facial asymmetry. VIII: She was able to hear well bilaterally and had no nystagmus. IX: The palate moved symmetrically on phonation. X: She had no hoarseness of voice. XI: The sternocleidomastoids and trapezii functioned normally. XII: The tongue was in the midline without any fasciculations or atrophy. MOTOR SYSTEM: The tone was normal in all four extremities. Examination of muscle mass revealed no focal wasting. Examination of power revealed grade 5/5 power in all muscle groups tested. SENSORY EXAMINATION: She had intact sensations to pinprick, light touch, and graphesthesia. COORDINATION: She performed well on wbmwxj-th-wtow and zzvx-mg-kvmz testing. REFLEXES: 1+ and bilaterally symmetrical at the biceps, triceps, brachioradialis , and knees, 0 at both ankles. The plantar responses were flexor bilaterally. STANCE: She had a normal stance. GAIT: She had a normal gait. Impression/Recommendations Diagnostic Impression 1. Ms Vita Meade is a 66-year-old, right-handed, lady, who has had an irregular heartbeat for the last few months, which she treats with natural medicine. She was functioning relatively well until the morning of 02/14/2017 when she went to the bathroom felt dizzy, lightheaded, had visual blurring and had a feeling that she may pass out. Since then, she has been hospitalized and has had no further similar symptoms. She however has been noted to be in constant atrial fibrillation with a variable ventricular rate. 2. She feels well. She is minimally light headed when she stands or walks. She denies any new neurologic symptoms. She denies any palpitations. She is eager to go home. 3. The neurological examination at this time is essentially benign except for globally diminished deep tendon reflexes. 4. An MRI scan of the brain reveals multiple old deep white matter lesions but no acute pathology. 5. The Carotid Duplex revealed no significant disease. 6. Laboratory data revealed relatively normal CBC, a chemistry panel that is also relatively normal except for a proBNP elevated to 1120, normal cholesterol , elevated TSH and a normal INR at 1.0. 7. The patient's history and neurological examination are most compatible with an episode of near syncope most probably related to her cardiac arrhythmia. Recommendations 1. Continue present management. 2. Management of cardiac arrhythmia as per Dr. Zamudio. 3. Anticoagulation for stroke prophylaxis as planned. 4. Keep active. Jono Wilburn M.D., M.S.P.Tanvi. JONO WILBURN Feb 18, 2017 15:50
[2017-02-18] MEDS ORDERED: Xarelto 10mg tab ORAL SCH (16:30)
--- NOTE | 2017-02-22 13:45 | Discharge Summary ---
Discharge Summary Hospital Course Date of Admission Feb 15, 2017 at 08:40 Date of Discharge Feb 18, 2017 at 16:45 Admitting Diagnosis syncope/afib HPI Vita Meade is a 66 year old female who was admitted on Feb 15, 2017 at 08: 40 for Syncope, Atrial Fribrillation Hospital Course dc summary #[id number] Discharge Medications New Medications: Aspirin* (Aspirin*) 81 Mg Tab.chew 81 MG ORAL DAILY, #30 TAB Metoprolol Tartrate (Metoprolol Tartrate) 25 Mg Tablet 12.5 MG ORAL Q12HR for 30 Days, TAB Rivaroxaban (Xarelto*) 10 Mg Tablet 20 MG ORAL QPM for 30 Days, TAB Discontinued Medications: No Known Medications* (NKM - No Known Medications*) . 0 ., 0 Refills Discharge Condition Upon Discharge: stable Discharge Disposition Patient was discharged to Home (01) Discharge Diagnoses: Discharge Instructions Discharge Instructions Special Instructions I have been assigned to complete a D/C Summary on this account. I was not involved in the patient management Sabrina Maldonado NP ([place]anchtein) Feb 22, 2017 13:45
--- NOTE | 2017-02-22 16:34 | Cardiology Report ---
APPROVED REPORT EXAM: Two-dimensional and M-mode echocardiogram with Doppler and color Doppler. INDICATION Atrial Fibrillation M-Mode DIMENSIONS IVSd0.9 (0.7-1.1cm)Left Atrium (MM)3.9 (1.6-4.0cm) LVDd4.5 (3.5-5.6cm)Aortic Root2.8 (2.0-3.7cm) PWd0.9 (0.7-1.1cm)Aortic Cusp Exc.1.9 (1.5-2.0cm) LVDs3.5 (2.5-4.0cm) PWs1.3 cm Normal left ventricular chamber size, systolic function and wall motion. Left ventricular ejection fraction estimated to be 55 %. No evidence of left ventricular hypertrophy. Anterior Echo-free space, may be due to pericardial fat or effusion. All other cardiac chamber sizes are within normal limits. Focal aortic valve sclerosis with adequate cusp excursion. Thickened mitral valve leaflets with normal excursion. Mitral annulus and aortic root calcification. Pulmonic valve not well visualized. Normal tricuspid valve structure. IVC measures at 1.8 cm with physiological collapse. A color flow and spectral Doppler study was performed and revealed: No aortic insufficiency. Mild mitral regurgitation. Can not determine left ventricular diastolic function by mitral diastolic velocities due to atrial fibrillation. Mild tricuspid regurgitation. Tricuspid systolic velocities suggests peak right ventricular systolic pressure of 33 mmHg. Trace pulmonic regurgitation present.
--- NOTE | 2017-02-23 05:30 | Discharge Summary 2 SIG ---
DATE OF ADMISSION: 02/15/2017 DATE OF DISCHARGE: 02/18/2017 REASON FOR ADMISSION: 66-year-old female without any past medical history, who had not seen a doctor for a few years , presented with complaints of near syncopal episode. She was about to go to the bathroom when she felt dizzy and she does not remember what happened. She was weak. She did not lose her consciousness. No fever. No chills. No nausea or vomiting. No fall, no head trauma. Denied chest pain. Denied shortness of breath. Laboratory workup revealed no leukocytosis. Stable hemoglobin and hematocrit. Troponin negative. Electrolytes within normal limits. EKG revealed atrial fibrillation with controlled ventricular rate. Chest x-ray revealed no acute process. The patient was admitted with syncopal versus presyncopal episode and atrial fibrillation with normal ventricular rate. HOSPITAL COURSE: The patient was admitted. Cardiology and Neurology consults were requested. Serial troponin were negative. EKG revealed atrial fibrillation with controlled ventricular response. The patient was ruled out for acute myocardial infarction.. The patient undergone stress test, which revealed no evidence of ischemia with calculated ejection fraction above 70%. Per Cardiology, the patient was started on small dose of beta-ni for rate control and anticoagulation with Xarelto. CT of the head revealed no acute intracranial abnormalities. Neurologist seen and evaluated the patient and ordered MRI of the brain. MRI of the brain revealed no acute intracranial findings but showed mild white matter signal abnormality likely chronic small vessel disease, given the patient age. Carotid duplex was essentially stable. Chest x-ray was stable. No evidence of acute cardiopulmonary pathology. Lipid panel was within normal limits. Per neurologist, the patient's history and neurological examination were most compatible with episodes of near syncopal episode most probably related to her cardiac arrhythmia. The patient was clinically improving. No palpitations, no chest pain, no dizziness. The patient was stable for discharge home. FINAL DIAGNOSES: 1. Near syncopal episode most probably related to cardiac arrhythmia. 2. Atrial fibrillation with normal ventricular rate, newly diagnosed. 3. Vertigo. DISCHARGE MEDICATIONS: See medication reconciliation list. DISCHARGE INSTRUCTIONS: The patient discharged home. Follow up with the primary medical doctor next week. Pelon Cormier M.D. I have been assigned to dictate discharge summary on this account and I was not involved in the patient's management. Sabrina MedleyBuffalo Psychiatric CenterJarod henderson DR: ERIK JOB#: [id number] CC: [email or web address]
== END 2017-02-18 16:45 | disposition home or self-care (01) | DRG 310 ==
LOC: EDBD 06:00 → EMR 06:44 → 2E 08:40 → EDBD 08:40 → EDBEDREQ 09:55 → 2E 02-16 11:07 → 3E 02-17 22:05
DX: I48.91 Unspecified atrial fibrillation (principal); R55 Syncope and collapse; R42 Dizziness and giddiness; R00.1 Bradycardia, unspecified
CPT/HCPCS: 36415; 70470; 70551; 71010; 78452; 80048; 80053; 80061; 82306; 82550; 82553; 82607; 82746; 83036; 83880; 84439; 84443; 84481; 84484; 85025; 85610; 85651; 85730; 86592; 93005; 93017; 93306; 93880; 99285; J2405; J2785

== ENCOUNTER 2017-10-27 09:31 | Emergency (ER) | payer MEDICARE, OTHER ==
[~2017-10-27] VITALS: Ht 154.9 cm; Wt 72.6 kg
[~2017-10-27 09:31] MED LIST changes: +ASPIRIN81 MG ORAL; +LOPRESSOR25 M1 ORAL; +XARELTO10 MG ORAL
[2017-10-27] MEDS ORDERED: LISINOPRIL10 MG ORAL (09:43)
[2017-10-27] MEDS ORDERED: FLECAINIDE ACET50 MG ORAL (09:43)
[2017-10-27 09:44] VITALS: BP 168/68
[2017-10-27 10:12] LABS: EOSINOPHILS % (AUTO) 0.3 % (0.0-3.0); HEMATOCRIT 38.2 % (37.0-47.0); HEMOGLOBIN 13.1 G/DL (12.0-16.0); LYMPHOCYTES % (AUTO) 33.5 % (20.0-45.0); MEAN CORPUSCULAR VOLUME 92 FL (80-99); NEUTROPHILS % (AUTO) 53.2 % (45.0-75.0); PLATELET COUNT 272 K/UL (150-450); RED BLOOD COUNT 4.16 M/UL (4.20-5.40); RED CELL DISTRIBUTION WIDTH 12.2 % (11.6-14.8); WHITE BLOOD COUNT 4.2 K/UL (4.8-10.8)
--- NOTE | 2017-10-27 10:14 | Emergency Room Report ---
History of Present Illness General Chief Complaint: General Complaint Source: Patient Present Illness HPI Patient complains of bleeding from her right ear. The patient has a history of atrial fibrillation and is on xeralto. She states that she was using a paper towel to clean her right ear yesterday and started having bleeding from her right ear. She states that she has had bleeding all night overnight. She denies trauma or injury. She denies headache or neck pain. She denies any other bleeding. She denies gum bleeding. She denies chest pain or abdominal pain. She denies shortness of breath. She states that she did recently see her primary care physician and underwent routine laboratory studies which were normal. She has no other complaints. Allergies: Coded Allergies: No Known Allergies (Unverified , 02/15/17) Patient History Past Medical History: see triage record, AFib Past Surgical History: none Social History: Denies: smoking, alcohol use, drug use Reviewed Nursing Documentation: PMH: Agreed; PSxH: Agreed Nursing Documentation-PMH Past Medical History: No History, Except For Hx Cardiac Problems: Yes Hx Hypertension: Yes Hx Cancer: No Hx Gastrointestinal Problems: No Hx Neurological Problems: No Review of Systems All Other Systems: negative except mentioned in HPI Physical Exam Vital Signs Date Time Temp Pulse Resp B/P (MAP) Pulse Ox O2 Delivery O2 Flow Rate FiO2 10/27/17 09:38 98.6 61 14 168/68 99 Room Air 98.6 Sp02 EP Interpretation: reviewed, normal General Appearance: no apparent distress, alert, GCS 15, non-toxic Head: normocephalic, atraumatic Eyes: bilateral eye normal inspection, bilateral eye PERRL ENT: hearing grossly normal, normal pharynx, no angioedema, normal voice, other - R. external canal with blood and debris (difficult to tell if this is a FB such as paper or blood clot). Neck: full range of motion, supple/symm/no masses Respiratory: chest non-tender, lungs clear, normal breath sounds, no respiratory distress, no retraction, no accessory muscle use, speaking full sentences Cardiovascular #1: regular rate, rhythm, no edema Gastrointestinal: normal bowel sounds, non tender, soft, non-distended, no guarding, no rebound Rectal: deferred Musculoskeletal: back normal, gait/station normal, normal range of motion, non- tender Neurologic: alert, oriented x3, responsive, motor strength/tone normal, sensory intact, speech normal Psychiatric: judgement/insight normal, memory normal, mood/affect normal, no suicidal/homicidal ideation Skin: normal color, no rash, warm/dry, well hydrated Medical Decision Making Diagnostic Impression: Primary Impression: Laceration of ear canal Additional Impression: Coagulopathy ER Course This patient has an abrasion/laceration of the right external canal of her ear. There was a large clot in the ear the ear was irrigated to remove the clot. There was continued oozing of the area. I clearly this is secondary to the patient being on xeralto. I did place an ear wick into the ear and used Cortisporin otic to expand the wick. I did discuss the case with the director of online education ENT physician Dr. Benítez. He will see the patient on Monday at 2 PM for follow- up appointment. There was no further bleeding after the ear wick was placed. The patient's laboratory workup was reassuring. The patient was given the bottle of Cortisporin otic that was used here in the emergency department and was instructed to apply 4 drops to the ear wick 3 times a day. The patient was given return precautions and follow up instructions. Laboratory Tests Test 10/27/17 10:00 White Blood Count 4.2 K/UL (4.8-10.8) L Red Blood Count 4.16 M/UL (4.20-5.40) L Hemoglobin 13.1 G/DL (12.0-16.0) Hematocrit 38.2 % (37.0-47.0) Mean Corpuscular Volume 92 FL (80-99) Mean Corpuscular Hemoglobin 31.6 PG (27.0-31.0) H Mean Corpuscular Hemoglobin Concent 34.4 G/DL (32.0-36.0) Red Cell Distribution Width 12.2 % (11.6-14.8) Platelet Count 272 K/UL (150-450) Mean Platelet Volume 6.8 FL (6.5-10.1) Neutrophils (%) (Auto) 53.2 % (45.0-75.0) Lymphocytes (%) (Auto) 33.5 % (20.0-45.0) Monocytes (%) (Auto) 12.0 % (1.0-10.0) H Eosinophils (%) (Auto) 0.3 % (0.0-3.0) Basophils (%) (Auto) 1.0 % (0.0-2.0) Prothrombin Time 13.2 SEC (9.30-11.50) H Prothrombin Time INR 1.3 (0.9-1.1) H PTT 39 SEC (23-33) H Sodium Level 131 MMOL/L (136-145) L Potassium Level 4.4 MMOL/L (3.5-5.1) Chloride Level 94 MMOL/L (98-107) L Carbon Dioxide Level 28 MMOL/L (21-32) Anion Gap 9 mmol/L (5-15) Blood Urea Nitrogen 14 mg/dL (7-18) Creatinine 0.6 MG/DL (0.55-1.30) Estimate Glomerular Filtration Rate > 60 mL/min (>60) Glucose Level 60 MG/DL (74-106) L Calcium Level 9.6 MG/DL (8.5-10.1) Last Vital Signs Date Time Temp Pulse Resp B/P (MAP) Pulse Ox O2 Delivery O2 Flow Rate FiO2 10/27/17 09:44 98.6 61 14 168/68 99 Room Air 98.6 Status: improved Disposition: HOME, SELF-CARE Condition: Improved Referrals: NOT CHOSEN IPA/,REFERRING (PCP) Valentine Palencia DO Oct 27, 2017 10:14
[2017-10-27 10:20] LABS: ANION GAP 9 mmol/L (5-15); BLOOD UREA NITROGEN 14 mg/dL (7-18); CALCIUM 9.6 MG/DL (8.5-10.1); CARBON DIOXIDE 28 MMOL/L (21-32); CHLORIDE 94 MMOL/L (98-107); CREATININE 0.6 MG/DL (0.55-1.30); POTASSIUM 4.4 MMOL/L (3.5-5.1); SODIUM 131 MMOL/L (136-145)
[2017-10-27 10:21] LABS: INR 1.3 (0.9-1.1)
[2017-10-27 12:20] VITALS: BP 152/63
== END 2017-10-27 12:23 | disposition home or self-care (01) ==
LOC: EMR 09:54
DX: S01.311A Laceration without foreign body of right ear, initial encounter (principal); H92.21 Otorrhagia, right ear; I48.91 Unspecified atrial fibrillation; Z79.01 Long term (current) use of anticoagulants; X58.XXXA Exposure to other specified factors, initial encounter; Y93.E8 Activity, other personal hygiene; Y92.9 Unspecified place or not applicable; Y92.009 Unspecified place in unspecified non-institutional (private) residence as the place of occurrence of the external cause; Y99.9 Unspecified external cause status
CPT/HCPCS: 36415; 80048; 85025; 85610; 85730; 99283

== ENCOUNTER 2018-04-28 13:01 | Inpatient (IN) | payer MEDICARE, OTHER ==
[~2018-04-28] VITALS: Ht 165.1 cm; Wt 65.8 kg
[~2018-04-28 13:01] MED LIST changes: +FLECAINIDE ACET50 MG ORAL; +LISINOPRIL10 MG ORAL
--- NOTE | 2018-04-28 14:01 | Emergency Room Report ---
History of Present Illness General Chief Complaint: Dizziness Source: Patient, Medical Record Present Illness HPI At 11:30 today the patient had a episode of near syncope. She felt dizziness and her vision became dark. She didn't lose consciousness completely. She was walking around getting ready to leave in [place]. She denies any chest pain or palpitations. She had some pain in the back of her neck and head. She took her blood pressure and also 911 was summoned. They evaluated her and she was asymptomatic at that time. She denies any fevers, nausea, vomiting, diaphoresis or involuntary muscle movement. The patient ate breakfast this morning. Denies diabetes. There's been no recent change in her usual medications. She started taking something for hip pain recently. She has been urinating more frequently and drinking more water. The patient is a history of atrial fibrillation. She's on flecainide and [place] toe. She's never had an episode like this before. When she did have atrial fibrillation she was symptomatic and felt palpitations at that time. Allergies: Coded Allergies: No Known Allergies (Unverified , 02/15/17) Patient History Past Medical History: see triage record Social History: Denies: smoking, alcohol use, drug use Social History Narrative with her daughter Now: No Reviewed Nursing Documentation: PMH: Agreed; PSxH: Agreed Nursing Documentation-PMH Hx Cardiac Problems: Yes - A-fib Hx Hypertension: Yes Hx Cancer: No Hx Gastrointestinal Problems: No Hx Neurological Problems: No Review of Systems All Other Systems: negative except mentioned in HPI Physical Exam Vital Signs Date Time Temp Pulse Resp B/P (MAP) Pulse Ox O2 Delivery O2 Flow Rate FiO2 04/28/18 13:38 97.7 58 18 118/51 100 Room Air Sp02 EP Interpretation: reviewed, normal General Appearance: well appearing, no apparent distress, GCS 15 Head: normocephalic Eyes: bilateral eye normal inspection, bilateral eye PERRL, bilateral eye EOMI ENT: moist mucus membranes Neck: supple Respiratory: lungs clear, normal breath sounds Cardiovascular #1: regular rate, rhythm Cardiovascular #2: 2+ radial (R) Gastrointestinal: normal inspection, normal bowel sounds, non tender, no mass, non-distended Musculoskeletal: back normal, gait/station normal, normal range of motion Neurologic: alert, oriented x3, pickle pumper III-XII nml as tested, motor strength/tone normal, DTRs symmetric, sensory intact, cerebellar normal, normal gait, speech normal Psychiatric: mood/affect normal - not wanting to come into the hospital Skin: normal inspection, warm/dry Medical Decision Making Diagnostic Impression: Primary Impression: Near syncope Additional Impression: Hyponatremia ER Course The patient presents with an episode of near-syncope and neck pain with history of atrial fibrillation. I differential includes subarachnoid bleed, arrhythmia , acute myocardial infarction, electrolyte imbalance, dehydration amongst others. Evaluation will be with EKG, chest x-ray, CT the head and labs. Orthostatics will be performed. The patient is placed on a property assessment monitor. Patient not orthostatic, but BP drop 10 points with standing (HR constant - on beta ni). EKG without injury. CXR - nipple shadow R. Low sodium. Sodium is low. Urine sodium ordered. NS also ordered. It was checked last week and was 134. Patient not want to stay but understands importance of eval of sodium and near syncope. Admit obs tele Dr. Cormier. Laboratory Tests Test 04/28/18 14:20 White Blood Count 8.9 K/UL (4.8-10.8) Red Blood Count 3.64 M/UL (4.20-5.40) L Hemoglobin 11.5 G/DL (12.0-16.0) L Hematocrit 34.1 % (37.0-47.0) L Mean Corpuscular Volume 94 FL (80-99) Mean Corpuscular Hemoglobin 31.6 PG (27.0-31.0) H Mean Corpuscular Hemoglobin Concent 33.7 G/DL (32.0-36.0) Red Cell Distribution Width 12.6 % (11.6-14.8) Platelet Count 221 K/UL (150-450) Mean Platelet Volume 6.9 FL (6.5-10.1) Neutrophils (%) (Auto) 69.3 % (45.0-75.0) Lymphocytes (%) (Auto) 22.9 % (20.0-45.0) Monocytes (%) (Auto) 7.3 % (1.0-10.0) Eosinophils (%) (Auto) 0.3 % (0.0-3.0) Basophils (%) (Auto) 0.2 % (0.0-2.0) Prothrombin Time 12.0 SEC (9.30-11.50) H Prothrombin Time INR 1.1 (0.9-1.1) PTT 37 SEC (23-33) H Urine Color Pale yellow Urine Appearance Clear Urine pH 8 (4.5-8.0) Urine Specific [place] 1.010 (1.005-1.035) Urine Protein Negative (NEGATIVE) Urine Glucose (UA) Negative (NEGATIVE) Urine Ketones Negative (NEGATIVE) Urine Blood 2+ (NEGATIVE) H Urine Nitrite Negative (NEGATIVE) Urine Bilirubin Negative (NEGATIVE) Urine Urobilinogen Normal MG/DL (0.0-1.0) Urine Leukocyte Esterase Negative (NEGATIVE) Urine RBC 2-4 /HPF (0 - 2) H Urine WBC 0 /HPF (0 - 2) Urine Squamous Epithelial Cells None /LPF (NONE/OCC) Urine Bacteria None /HPF (NONE) Sodium Level 126 MMOL/L (136-145) L Potassium Level 4.2 MMOL/L (3.5-5.1) Chloride Level 92 MMOL/L (98-107) L Carbon Dioxide Level 26 MMOL/L (21-32) Anion Gap 8 mmol/L (5-15) Blood Urea Nitrogen 14 mg/dL (7-18) Creatinine 0.6 MG/DL (0.55-1.30) Estimate Glomerular Filtration Rate > 60 mL/min (>60) Glucose Level 100 MG/DL (74-106) Calcium Level 9.3 MG/DL (8.5-10.1) Total Bilirubin 0.3 MG/DL (0.2-1.0) Aspartate Amino Transferase (AST) 23 U/L (15-37) Alanine Aminotransferase (ALT) 24 U/L (12-78) Alkaline Phosphatase 112 U/L (46-116) Total Creatine Kinase 151 U/L (26-308) Troponin I 0.000 ng/mL (0.000-0.056) Pro-B-Type Natriuretic Peptide 365 pg/mL (0-125) H Total Protein 7.4 G/DL (6.4-8.2) Albumin 4.2 G/DL (3.4-5.0) Globulin 3.2 g/dL Albumin/Globulin Ratio 1.3 (1.0-2.7) EKG Diagnostic Results Rate: normal Rhythm: NSR ST Segments: no acute changes - Incomplete right bundle-branch block and first degree block Rhythm Strip Diag. Results EP Interpretation: yes Rhythm: NSR, no PVC's, no ectopy Chest X-Ray Diagnostic Results Chest X-Ray Diagnostic Results : Chest X-Ray Ordered: Yes # of Views/Limited/Complete: 1 View Indication: Other EP Interpretation: Yes Interpretation: no consolidation, no effusion, no pneumothorax, other - nipple shadow Impression: No acute disease Electronically Signed by: Electronically signed by Roland Churchill MD CT/MRI/US Diagnostic Results CT/MRI/US Diagnostic Results : Imaging Test Ordered: head Impression no bleed or IC pathology Last Vital Signs Date Time Temp Pulse Resp B/P (MAP) Pulse Ox O2 Delivery O2 Flow Rate FiO2 04/29/18 00:00 54 04/29/18 00:00 98.3 18 99/50 (66) 98 04/28/18 21:00 Room Air Status: improved Disposition: PLACE IN OBSERVATION Condition: Serious Roland Churchill MD Apr 28, 2018 14:01
[2018-04-28 14:20] VITALS: BP_SYST 118; BP_SYST 125; BP_SYST 132; BP_SYST 133; BP_SYST 139; BP_DIAS 51; BP_DIAS 55; BP_DIAS 58; BP_DIAS 68
--- NOTE | 2018-04-28 14:20 | NUR ---
ED Nurse Note: pt, aao x4 brought in to ER by daughter, puerto rican speaker, due to dizziness. VSS, skin pale and cool to touch, but intact.
[2018-04-28 14:37] LABS: APPEARANCE,URINE CLEAR; BILIRUBIN, URINE NEGATIVE (NEGATIVE); COLOR,URINE PALE YELLOW; GLUCOSE, URINE (UA) NEGATIVE (NEGATIVE); KETONES,URINE NEGATIVE (NEGATIVE); LEUKOCYTE ESTERASE ,URINE NEGATIVE (NEGATIVE); NITRITE,URINE NEGATIVE (NEGATIVE); PH,URINE 8 (4.5-8.0); PROTEIN,URINE NEGATIVE (NEGATIVE); UROBILINOGEN,URINE NORMAL MG/DL (0.0-1.0)
[2018-04-28 14:38] LABS: BASOPHILS % (AUTO) 0.2 % (0.0-2.0); EOSINOPHILS % (AUTO) 0.3 % (0.0-3.0); HEMATOCRIT 34.1 % (37.0-47.0); HEMOGLOBIN 11.5 G/DL (12.0-16.0); LYMPHOCYTES % (AUTO) 22.9 % (20.0-45.0); MEAN CORPUSCULAR VOLUME 94 FL (80-99); MONOCYTES % (AUTO) 7.3 % (1.0-10.0); NEUTROPHILS % (AUTO) 69.3 % (45.0-75.0); PLATELET COUNT 221 K/UL (150-450); RED BLOOD COUNT 3.64 M/UL (4.20-5.40); RED CELL DISTRIBUTION WIDTH 12.6 % (11.6-14.8); WHITE BLOOD COUNT 8.9 K/UL (4.8-10.8)
[2018-04-28 14:47] LABS: ANION GAP 8 mmol/L (5-15); BLOOD UREA NITROGEN 14 mg/dL (7-18); CALCIUM 9.3 MG/DL (8.5-10.1); CARBON DIOXIDE 26 MMOL/L (21-32); CHLORIDE 92 MMOL/L (98-107); CREATININE 0.6 MG/DL (0.55-1.30); INR 1.1 (0.9-1.1); POTASSIUM 4.2 MMOL/L (3.5-5.1); SODIUM 126 MMOL/L (136-145)
[2018-04-28 14:59] LABS: ALANINE AMINOTRANSFERASE 24 U/L (12-78); ALBUMIN 4.2 G/DL (3.4-5.0); ALBUMIN/GLOBULIN RATIO 1.3 (1.0-2.7); ALKALINE PHOSPHATASE 112 U/L (46-116); ASPARTATE AMINO TRANSFERASE 23 U/L (15-37); BILIRUBIN,TOTAL 0.3 MG/DL (0.2-1.0); CREATINE KINASE 151 U/L (26-308)
--- NOTE | 2018-04-28 15:49 | NUR ---
ED Nurse Note: called lab to take new urine orders.
--- NOTE | 2018-04-28 16:31 | NUR ---
ED Nurse Note: Report given to FLORENTINO Alegria
[2018-04-28 16:43] VITALS: BP 139/68
--- NOTE | 2018-04-28 16:44 | NUR ---
ED Nurse Note: Pt was transferred to Telemetry unit with 1 RN and 1 automotive maintenance technician in stable condition.
--- NOTE | 2018-04-28 16:45 | NUR ---
NURSE NOTES: Patient is transferred from ED via gurney. Inventory check done. Daughter is at the bedside. Patient is alert and oriented x4. Patient is in stable condition. No acute distress/SOB noted. Patient denies any pain/discomfort at this time. Still awaiting admission packet From ER nurse. Will continue plan of care.
--- NOTE | 2018-04-28 17:20 | NUR ---
NURSE NOTES: Talked with Dr. Darnell and received admission orders.
--- NOTE | 2018-04-28 17:35 | NUR ---
NURSE NOTES: Received admission packet from ED.
--- NOTE | 2018-04-28 19:15 | NUR ---
HAND-OFF: Report given to FLORENTINO Hill. Patient is in stable condition. Endorsed plan of care.
--- NOTE | 2018-04-28 19:20 | NUR ---
NURSE NOTES: Received report from FLORENTINO Blue. Patient awake, alert and verbally responsive. Denies any pain nor discomfort at this time. IV site on R AC #20, patent and intact connected to NS at 50 cc/hr. Bed at lowest position, call light within reach. Family present at bedside. Will continue plan of care.
[2018-04-28 20:00] VITALS: BP 103/54
[2018-04-28] MEDS: Metoprolol Tartrate 12.5mg TAB ORAL SCH (21:00)
[2018-04-29] VITALS: BP 99/50
--- NOTE | 2018-04-29 03:03 | NUR ---
NURSE NOTES: Patient asleep, breathing even and unlabored, no s/sx of pain nor any discomfort at this time. Bed at lowest position, call light within reach. Will continue to monitor.
[2018-04-29 04:00] VITALS: BP 108/56
[2018-04-29 04:42] LABS: BASOPHILS % (AUTO) 0.7 % (0.0-2.0); HEMATOCRIT 31.1 % (37.0-47.0); HEMOGLOBIN 10.6 G/DL (12.0-16.0); LYMPHOCYTES % (AUTO) 43.2 % (20.0-45.0); MEAN CORPUSCULAR VOLUME 93 FL (80-99); MONOCYTES % (AUTO) 10.7 % (1.0-10.0); NEUTROPHILS % (AUTO) 44.3 % (45.0-75.0); PLATELET COUNT 203 K/UL (150-450); RED BLOOD COUNT 3.33 M/UL (4.20-5.40); RED CELL DISTRIBUTION WIDTH 12.3 % (11.6-14.8); WHITE BLOOD COUNT 5.6 K/UL (4.8-10.8)
[2018-04-29 04:49] LABS: ANION GAP 6 mmol/L (5-15); BLOOD UREA NITROGEN 13 mg/dL (7-18); CALCIUM 8.9 MG/DL (8.5-10.1); CARBON DIOXIDE 28 MMOL/L (21-32); CHLORIDE 98 MMOL/L (98-107); CREATININE 0.7 MG/DL (0.55-1.30); SODIUM 132 MMOL/L (136-145)
--- NOTE | 2018-04-29 07:10 | NUR ---
HAND-OFF: Report given to FLORENTINO Blue. Endorsed plan of care.
--- NOTE | 2018-04-29 07:13 | NUR ---
NURSE NOTES: Received report from Opal/RN, Patient is asleep, no sign of distress/SOB, family at bed side, call light within reach, bed in low position. Will continue plan of care.
[2018-04-29 08:00] VITALS: BP 111/60
--- NOTE | 2018-04-29 08:20 | Consultation ---
History of Present Illness General Date patient seen: Apr 29, 2018 Time patient seen: 07:30 Chief Complaint: Dizziness Referring physician: dr Cormier Reason for Consultation: inpt management Present Illness HPI 67 years old female with PMH of atrial fibrillation, arthritis , hypertension, presented to ER after near syncopal episode , when she felt dizzy and her vision became dark. She did not lose her consciousness. She denied chest pain and palpitations. She denies shortness of breath . She reported pain in her neck and the head. Paramedics were called , and patient was transferred to emergency room for further evaluation . At that time she was asymptomatic. No fever ,no chills ,no nausea, no vomiting , no diaphoresis. No history of diabetes. Upon evaluation vital signs were stable. Pulse oximetry was stable on room air. Heart rate 58. No leukocytosis, mild anemia with hemoglobin 11.5, hematocrit 34.1. Urinalysis revealed +2 blood , but was negative for infection. Electrolytes revealed acute hyponatremia with sodium 126. BUN 14, creatinine 0.6. Glucose 100. Stable LFT . Troponin negative . EKG revealed sinus rhythm with incomplete right bundle branch block and first- degree AV block. Pro BNP 365. Chest x-ray revealed no acute cardiopulmonary pathology. CT of the head report is missing, but preliminary no acute intracranial pathology. Patient was admitted to telemetry floor for further management. At the time of this evaluation she denies chest pain, SOB dizziness, palpitations. No cough, no congestion. No hx of diabetes. Allergies: Coded Allergies: No Known Allergies (Unverified , 02/15/17) Medication History Scheduled Aspirin* (Aspirin*), 81 MG ORAL DAILY Flecainide Acetate* (Tambocor*), 50 MG ORAL TWICE A DAY, (Reported) Lisinopril* (Lisinopril*), 10 MG ORAL DAILY, (Reported) Metoprolol Tartrate (Metoprolol Tartrate), 12.5 MG ORAL Q12HR Rivaroxaban (Xarelto*), 20 MG ORAL QPM Patient History History Provided By: Patient, Family Member Healthcare decision maker N Resuscitation status Full Code Advanced Directive on File Review of Systems Constitutional: Reports: no symptoms Eye: Reports: no symptoms ENT: Reports: no symptoms Respiratory: Reports: no symptoms Cardiovascular: Reports: other - A fib, HTN Gastrointestinal: Reports: no symptoms Genitourinary: Reports: no symptoms, other - postmenopausal Musculoskeletal: Reports: other - arthritis Skin: Reports: no symptoms Neurological: Reports: see HPI Endocrine: Reports: no symptoms Hematologic/Lymphatic: Reports: no symptoms Physical Exam General Appearance: no apparent distress, alert - awake, oriented, Kyrgyz speaking female Lines, tubes and drains: peripheral HEENT: normocephalic, atraumatic, anicteric, mucous membranes moist, PERRL Neck: supple Respiratory/Chest: lungs clear, no respiratory distress, no accessory muscle use Cardiovascular/Chest: normal rate - occ celina in 50th , regular rhythm, no JVD Abdomen: normal bowel sounds, non tender, soft Extremities: normal range of motion, no calf tenderness Skin Exam: warm/dry Neurologic: no motor/sensory deficits, alert, oriented x 3, responsive Musculoskeletal: normal muscle bulk Last 24 Hour Vital Signs Date Time Temp Pulse Resp B/P (MAP) Pulse Ox O2 Delivery O2 Flow Rate FiO2 04/29/18 04:00 98.0 51 17 108/56 (73) 98 04/29/18 04:00 53 04/29/18 00:00 54 04/29/18 00:00 98.3 54 18 99/50 (66) 98 04/28/18 21:00 Room Air 04/28/18 21:00 54 103/54 04/28/18 20:00 98.2 60 18 103/54 (70) 100 04/28/18 20:00 60 04/28/18 17:50 Room Air 04/28/18 17:25 60 04/28/18 16:43 98.0 76 17 126/69 98 Room Air 04/28/18 16:43 97.7 66 18 139/68 100 Room Air 04/28/18 14:20 97.7 66 18 139/68 100 Room Air 59 133/58 59 125/55 04/28/18 14:20 98.0 66 18 132/58 100 Room Air 04/28/18 14:20 66 18 Room Air 04/28/18 13:38 97.7 58 18 118/51 100 Room Air Intake and Output 04/28/18 04/29/18 18:59 06:59 Intake Total 50 ml 636 ml Balance 50 ml 636 ml Intake Oral 0 ml 120 ml IV Total 50 ml 516 ml # Voids 2 5 Laboratory Tests Test 04/28/18 14:20 3/10/19 04:00 White Blood Count 8.9 K/UL (4.8-10.8) 5.6 K/UL (4.8-10.8) Red Blood Count 3.64 M/UL (4.20-5.40) L 3.33 M/UL (4.20-5.40) L Hemoglobin 11.5 G/DL (12.0-16.0) L 10.6 G/DL (12.0-16.0) L Hematocrit 34.1 % (37.0-47.0) L 31.1 % (37.0-47.0) L Mean Corpuscular Volume 94 FL (80-99) 93 FL (80-99) Mean Corpuscular Hemoglobin 31.6 PG (27.0-31.0) H 31.9 PG (27.0-31.0) H Mean Corpuscular Hemoglobin Concent 33.7 G/DL (32.0-36.0) 34.2 G/DL (32.0-36.0) Red Cell Distribution Width 12.6 % (11.6-14.8) 12.3 % (11.6-14.8) Platelet Count 221 K/UL (150-450) 203 K/UL (150-450) Mean Platelet Volume 6.9 FL (6.5-10.1) 6.0 FL (6.5-10.1) L Neutrophils (%) (Auto) 69.3 % (45.0-75.0) 44.3 % (45.0-75.0) L Lymphocytes (%) (Auto) 22.9 % (20.0-45.0) 43.2 % (20.0-45.0) Monocytes (%) (Auto) 7.3 % (1.0-10.0) 10.7 % (1.0-10.0) H Eosinophils (%) (Auto) 0.3 % (0.0-3.0) 1.0 % (0.0-3.0) Basophils (%) (Auto) 0.2 % (0.0-2.0) 0.7 % (0.0-2.0) Prothrombin Time 12.0 SEC (9.30-11.50) H Prothromb Time International Ratio 1.1 (0.9-1.1) Activated Partial Thromboplast Time 37 SEC (23-33) H Urine Color Pale yellow Urine Appearance Clear Urine pH 8 (4.5-8.0) Urine Specific [place] 1.010 (1.005-1.035) Urine Protein Negative (NEGATIVE) Urine Glucose (UA) Negative (NEGATIVE) Urine Ketones Negative (NEGATIVE) Urine Blood 2+ (NEGATIVE) H Urine Nitrite Negative (NEGATIVE) Urine Bilirubin Negative (NEGATIVE) Urine Urobilinogen Normal MG/DL (0.0-1.0) Urine Leukocyte Esterase Negative (NEGATIVE) Urine RBC 2-4 /HPF (0 - 2) H Urine WBC 0 /HPF (0 - 2) Urine Squamous Epithelial Cells None /LPF (NONE/OCC) Urine Bacteria None /HPF (NONE) Urine Osmolality 139 mOsm/kg (429-449) L Urine Random Sodium 39 mmol/L (20-110) Sodium Level 126 MMOL/L (136-145) L 132 MMOL/L (136-145) L Potassium Level 4.2 MMOL/L (3.5-5.1) 5.0 MMOL/L (3.5-5.1) Chloride Level 92 MMOL/L (98-107) L 98 MMOL/L (98-107) Carbon Dioxide Level 26 MMOL/L (21-32) 28 MMOL/L (21-32) Anion Gap 8 mmol/L (5-15) 6 mmol/L (5-15) Blood Urea Nitrogen 14 mg/dL (7-18) 13 mg/dL (7-18) Creatinine 0.6 MG/DL (0.55-1.30) 0.7 MG/DL (0.55-1.30) Estimat Glomerular Filtration Rate > 60 mL/min (>60) > 60 mL/min (>60) Glucose Level 100 MG/DL (74-106) 98 MG/DL (74-106) Calcium Level 9.3 MG/DL (8.5-10.1) 8.9 MG/DL (8.5-10.1) Total Bilirubin 0.3 MG/DL (0.2-1.0) Aspartate Amino Transf (AST/SGOT) 23 U/L (15-37) Alanine Aminotransferase (ALT/SGPT) 24 U/L (12-78) Alkaline Phosphatase 112 U/L (46-116) Total Creatine Kinase 151 U/L (26-308) Troponin I 0.000 ng/mL (0.000-0.056) Pro-B-Type Natriuretic Peptide 365 pg/mL (0-125) H Total Protein 7.4 G/DL (6.4-8.2) Albumin 4.2 G/DL (3.4-5.0) Globulin 3.2 g/dL Albumin/Globulin Ratio 1.3 (1.0-2.7) Height (Feet): 5 Height (Inches): 5.00 Weight (Pounds): 145 Medications Current Medications Medications (Trade) Dose Ordered Sig/Miles Route PRN Reason Start Time Stop Time Status Last Admin Dose Admin Aspirin (ASA) 81 mg DAILY ORAL 04/29/18 09:00 05/29/18 08:59 Flecainide Acetate (Tambocor) 50 mg Q12HR ORAL 04/28/18 21:00 05/28/18 20:59 04/28/18 21:29 Lisinopril (Zestril) 10 mg DAILY ORAL 04/29/18 09:00 05/29/18 08:59 Metoprolol Tartrate (Lopressor) 12.5 mg Q12HR ORAL 04/28/18 21:00 05/28/18 20:59 Rivaroxaban (Xarelto) 20 mg QPM ORAL 04/29/18 16:30 05/29/18 16:29 Sodium Chloride 1,000 ml @ 50 mls/hr Q20H IV 04/28/18 18:00 05/28/18 17:59 04/28/18 17:41 Assessment/Plan Assessment/Plan ASSESSMENT pre-syncopal episode - likely due to hyponatremia hyponatremia-improving A fib HTN Anemia PLAN OF CARE tele gentle IVF with NS -Na improving already with IV hydration hypo Na workup BP meds with holding parameters, Carotid Duplex orthostatic VS bid q shift PT eval and Rx continue a/coag for A fib, HR stable monitor lytes, renal paramerts, correct furtehr as needed monitor HH with goal to keep above 7, anemia w/up, stool OB GI prophylaxis case discussed and evaluated by supervising physician Sabrina Maldonado NP Apr 29, 2018 08:20
[2018-04-29 09:10] LABS: FERRITIN 82 NG/ML (8-388)
[2018-04-29] MEDS: Aspirin Baby 81mg ORAL SCH (09:18)
[2018-04-29] MEDS: Metoprolol Tartrate 12.5mg TAB ORAL SCH ×2 (09:18→21:00)
[2018-04-29] MEDS: Lisinopril 10mg tab ORAL SCH (09:19)
[2018-04-29 09:26] LABS: % IRON SATURATION 25 % (15-50); IRON 73 ug/dL (50-175); TOTAL IRON BINDING CAPACITY 293 ug/dL (250-450)
[2018-04-29 12:00] VITALS: BP 118/55
--- NOTE | 2018-04-29 14:12 | NUR ---
PT Note PT rossy completed. Patient's BP as follows: supine 107/56, HR 59; sitting 125/63, HR 58; standing 102/64, HR 61; after ambulating ~250 ft, BP 145/66, HR 64. Patient denies any dizziness. Per patient, syncopal episode happened ~1.5 hours after taking her BP meds. Patient was instructed to check her BP prior to taking her antihypertensive medications and to ask MD for parameters as to when to hold the meds. RN and CN were notified. Patient is independent in all her mobility. No further PT f/u treatments needed at this time. Addendum: 04/29/18 at 1412 by JOSE FRANCISCO FALCON PT Amended: Links added.
--- NOTE | 2018-04-29 14:46 | History & Physical ---
History and Physical History & Physicial Dictated for Int med-Dr Cormier no. [id number]. Javad Darnell MD Apr 29, 2018 14:46
[2018-04-29 16:00] VITALS: BP 116/56
[2018-04-29] MEDS: Xarelto 10mg tab ORAL SCH (16:33)
--- NOTE | 2018-04-29 17:02 | History and Physical Report ---
DATE OF ADMISSION: 04/28/2018 CHIEF COMPLAINT: The patient is a 67-year-old female, presents with complaint of "dizzy." HISTORY OF PRESENT ILLNESS: The patient has a history of atrial fibrillation. The patient was admitted to [facility] in January of 2017. Please see history and physical and discharge summary dictated at that time. The patient states about 11:30 on 04/28/2018, she was leaving the house. The patient was getting her keys in her purse. The patient states she felt lightheaded. The room seems to spin. The patient states the room got dark. The patient denies loss of consciousness. The patient presented to [place] emergency room. The patient is admitted for near syncopal episode. REVIEW OF SYSTEMS: CONSTITUTIONAL: The patient denies weight loss or weight gain. The patient denies fevers or chills. HEENT: The patient denies ear or throat pain. The patient denies headache. CARDIOVASCULAR: The patient denies palpitations or chest pain. ABDOMEN: The patient denies nausea, vomiting, diarrhea, or constipation. GENITOURINARY: The patient denies dysuria or increased frequency of urination. NEUROMUSCULAR: The patient complains of dizziness as above. The patient denies seizures or generalized weakness. PAST MEDICAL HISTORY: Significant for: 1. Known atrial fibrillation. 2. Hypertension. PAST SURGICAL HISTORY: The patient denies. CURRENT MEDICATIONS: 1. Aspirin 81 mg one tablet p.o. daily. 2. Flecainide 50 mg one tablets p.o. twice daily. 3. Lisinopril 10 mg p.o. daily. 4. Metoprolol 25 mg one-half tablet p.o. twice daily. 5. Xarelto 20 mg p.o. daily. ALLERGIES: No known drug allergies. SOCIAL HISTORY: The patient is and lives with her adult daughter. The patient denies tobacco or alcohol use. PHYSICAL EXAMINATION: VITAL SIGNS: Temperature 97.7, respirations 18, pulse 58, and blood pressure 118/51. GENERAL: The patient is a well-developed and well-nourished female, in no apparent distress. HEENT: Eyes, pupils are equal and responsive to light and accommodation. Extraocular movements are intact. NECK: Supple without lymphadenopathy. CHEST: Lungs are clear to auscultation bilaterally without wheezes or rales. CARDIOVASCULAR: Regular rhythm and rate. S1 and S2 are normal without murmurs, rubs, or gallops. ABDOMEN: Soft, nontender, and nondistended. Positive bowel sounds. No evidence of hepatosplenomegaly. Currently, no rebound or guarding noted. EXTREMITIES: Negative for clubbing, cyanosis, or edema. RECTAL/GENITAL: Not performed. NEUROLOGIC: Cranial nerves II through XII are grossly intact without focal deficits. Motor strength is 5/5 bilaterally. Deep tendon reflexes are 2+ plantar. LABORATORY STUDIES: WBC 8.9, hemoglobin 1.5, hematocrit 34.1, and platelets 221,000. Sodium 126 potassium 4.3, chloride 93, CO2 26, BUN 14, creatinine 0.6, and glucose 100. Urinalysis showed 2+ blood with 2 to 4 rbc's. ASSESSMENT: This is a 67-year-old female. 1. Near syncope. 2. Hyponatremia. 3. Atrial fibrillation. 4. Hypertension. TREATMENT: 1. Near syncope. This could be secondary to hypotension. This could also be secondary to acute cerebrovascular accident versus acute myocardial infarction. A Cardiology consultation has been obtained with Dr. Raul Zamudio. An MRI of the brain, carotid duplex, and Dopplers are pending. We will follow recommendations of Cardiology. 2. Hyponatremia. The cause of hyponatremia is unknown. The patient denies recent diarrhea or vomiting. The patient is currently receiving intravenous fluids with normal saline. We will follow. 3. Atrial fibrillation. Continue flecainide as above. A Cardiology consultation has been obtained with Dr. Raul Zamudio. 4. Hypertension. Continue metoprolol as above. Javad Darnell M.D. DR: GALILEA JOB#: [id number] CC:
--- NOTE | 2018-04-29 19:20 | NUR ---
NURSE NOTES: pt aaox4, in bed watching tv, daughter at bed side. no acute distress noted, no c/o pain safety precaution in place will continue to monitor.
--- NOTE | 2018-04-29 19:38 | NUR ---
HAND-OFF: Report given to FLORENTINO Deshpande. Patient is in stable condition. Endorsed paln of care.
[2018-04-29 20:00] VITALS: BP 104/54
[2018-04-30] VITALS: BP 112/57
--- NOTE | 2018-04-30 02:00 | NUR ---
NURSE NOTES: pt sleeping not s/s acute distress noted. will continue to monitor.
[2018-04-30 04:00] VITALS: BP 127/67
--- NOTE | 2018-04-30 06:55 | NUR ---
NURSE NOTES: pt sleeping in bed, pt refused insulin during my shift. no acute distress or change in condition, needs met during my shift will endorse to incoming nurse.
--- NOTE | 2018-04-30 07:20 | NUR ---
NURSE NOTES: Received report from FLORENTINO Deshpande. Pt is sitting up in bed watching television. No distress is noted. Bed is in lowest position, side rails up X2, and call light is within reach. Will continue to monitor.
--- NOTE | 2018-04-30 07:26 | NUR ---
HAND-OFF: Report given to FLORENTINO Bentley.
[2018-04-30 08:00] VITALS: BP 103/55
[2018-04-30 08:13] LABS: BASOPHILS % (AUTO) 0.4 % (0.0-2.0); EOSINOPHILS % (AUTO) 0.9 % (0.0-3.0); HEMATOCRIT 32.8 % (37.0-47.0); MEAN CORPUSCULAR VOLUME 94 FL (80-99); MONOCYTES % (AUTO) 9.2 % (1.0-10.0); NEUTROPHILS % (AUTO) 48.5 % (45.0-75.0); PLATELET COUNT 220 K/UL (150-450); RED BLOOD COUNT 3.47 M/UL (4.20-5.40); RED CELL DISTRIBUTION WIDTH 12.9 % (11.6-14.8); WHITE BLOOD COUNT 4.6 K/UL (4.8-10.8)
[2018-04-30 08:29] LABS: ANION GAP 5 mmol/L (5-15); BLOOD UREA NITROGEN 11 mg/dL (7-18); CALCIUM 8.9 MG/DL (8.5-10.1); CARBON DIOXIDE 28 MMOL/L (21-32); CHLORIDE 100 MMOL/L (98-107); CREATININE 0.7 MG/DL (0.55-1.30); POTASSIUM 4.3 MMOL/L (3.5-5.1); SODIUM 133 MMOL/L (136-145)
--- NOTE | 2018-04-30 08:51 | NUR ---
CASE MANAGEMENT:REVIEW 67 YR OLD FEMALE FROM HOME CC: LIGHTHEADED AND DIZZINESS SI: NEAR SYNCOPE. HYPONATREMIA 97.7 58 18 118/51 100% ON RA NA-126 IS:CT HEAD CXR 1L NS @ 50/HR ORTHOSTATIC VS : TO TELEMETRY PLAN: 2DECHO CAROTID DUPLEX PT EVAL FALL PRECAUTION INTERQUAL CRITERIA MET
[2018-04-30] MEDS: Aspirin Baby 81mg ORAL SCH (08:56)
[2018-04-30] MEDS: Metoprolol Tartrate 12.5mg TAB ORAL SCH ×2 (09:00→21:27)
[2018-04-30] MEDS: Lisinopril 10mg tab ORAL SCH (09:00)
[2018-04-30 12:00] VITALS: BP 100/86
--- NOTE | 2018-04-30 13:59 | Pulmonology Progress Note ---
Assessment/Plan Problems: (1) Acute metabolic encephalopathy (2) Hyponatremia (3) Atrial fibrillation (4) Chronic anticoagulation (5) Near syncope (6) Vertigo Assessment/Plan continue telemetry echo, Us of carotid artery, NA better, pt/o awaiting neuro evaluation cardio consult called. Subjective ROS Limited/Unobtainable: No Constitutional: Reports: no symptoms HEENT: Repors: no symptoms Respiratory: Reports: no symptoms Cardiovascular: Reports: no symptoms Allergies: Coded Allergies: No Known Allergies (Unverified , 02/15/17) Objective Last 24 Hour Vital Signs Date Time Temp Pulse Resp B/P (MAP) Pulse Ox O2 Delivery O2 Flow Rate FiO2 04/30/18 09:00 Room Air 04/30/18 08:00 57 04/30/18 08:00 97.5 57 16 103/55 (71) 97 04/30/18 04:00 62 04/30/18 04:00 98.6 60 18 127/67 (87) 99 04/30/18 00:10 60 04/30/18 00:05 58 04/30/18 00:00 98.3 55 18 112/57 (75) 99 04/30/18 00:00 55 04/30/18 00:00 57 04/29/18 21:10 63 04/29/18 21:05 60 04/29/18 21:00 72 115/55 04/29/18 21:00 60 04/29/18 21:00 Room Air 04/29/18 20:00 60 04/29/18 20:00 98.5 60 18 104/54 (71) 97 04/29/18 16:10 61 04/29/18 16:05 60 04/29/18 16:00 98.0 58 18 116/56 (76) 98 04/29/18 16:00 58 04/29/18 16:00 59 Intake and Output 04/29/18 04/30/18 19:00 07:00 Intake Total 837 ml 670 ml Balance 837 ml 670 ml Intake Oral 240 ml 120 ml IV Total 597 ml 550 ml # Voids 4 1 General Appearance: WD/WN HEENT: normocephalic, atraumatic Respiratory/Chest: chest wall non-tender, lungs clear Breasts: no masses Cardiovascular: regularly irregular Abdomen: normal bowel sounds Extremities: no cyanosis Skin: no rash Laboratory Tests 04/30/18 07:43: White Blood Count 4.6L, Red Blood Count 3.47L, Hemoglobin 11.0L, Hematocrit 32.8L, Mean Corpuscular Volume 94, Mean Corpuscular Hemoglobin 31.5H, Mean Corpuscular Hemoglobin Concent 33.4, Red Cell Distribution Width 12.9, Platelet Count 220, Mean Platelet Volume 6.4L, Neutrophils (%) (Auto) 48.5, Lymphocytes ( %) (Auto) 41.0, Monocytes (%) (Auto) 9.2, Eosinophils (%) (Auto) 0.9, Basophils (%) (Auto) 0.4, Sodium Level 133L, Potassium Level 4.3, Chloride Level 100, Carbon Dioxide Level 28, Anion Gap 5, Blood Urea Nitrogen 11, Creatinine 0.7, Estimat Glomerular Filtration Rate > 60, Glucose Level 94, Calcium Level 8.9 Current Medications Medications (Trade) Dose Ordered Sig/Miles Route PRN Reason Start Time Stop Time Status Last Admin Dose Admin Aspirin (ASA) 81 mg DAILY ORAL 04/29/18 09:00 05/29/18 08:59 04/30/18 08:56 Flecainide Acetate (Tambocor) 50 mg Q12HR ORAL 04/28/18 21:00 05/28/18 20:59 04/30/18 08:56 Lisinopril (Zestril) 10 mg DAILY ORAL 04/29/18 09:00 05/29/18 08:59 04/29/18 09:19 Metoprolol Tartrate (Lopressor) 12.5 mg Q12HR ORAL 04/28/18 21:00 05/28/18 20:59 04/29/18 21:00 Pantoprazole (Protonix) 40 mg DAILY ORAL 04/30/18 09:00 05/30/18 08:59 04/30/18 08:56 Rivaroxaban (Xarelto) 20 mg QPM ORAL 04/29/18 16:30 05/29/18 16:29 04/29/18 16:33 Sodium Chloride 1,000 ml @ 50 mls/hr Q20H IV 04/28/18 18:00 05/28/18 17:59 04/30/18 10:24 Izzy Jeronimo MD Apr 30, 2018 13:59
--- NOTE | 2018-04-30 15:42 | Cardiac Electrophysiology PN ---
Subjective Subjective [id number] Objective Last 24 Hour Vital Signs Date Time Temp Pulse Resp B/P (MAP) Pulse Ox O2 Delivery O2 Flow Rate FiO2 04/30/18 12:00 55 04/30/18 12:00 98.7 64 16 100/86 (91) 99 04/30/18 09:00 Room Air 04/30/18 08:00 57 04/30/18 08:00 97.5 57 16 103/55 (71) 97 04/30/18 04:00 62 04/30/18 04:00 98.6 60 18 127/67 (87) 99 04/30/18 00:10 60 04/30/18 00:05 58 04/30/18 00:00 98.3 55 18 112/57 (75) 99 04/30/18 00:00 55 04/30/18 00:00 57 04/29/18 21:10 63 04/29/18 21:05 60 04/29/18 21:00 72 115/55 04/29/18 21:00 60 04/29/18 21:00 Room Air 04/29/18 20:00 60 04/29/18 20:00 98.5 60 18 104/54 (71) 97 04/29/18 16:10 61 04/29/18 16:05 60 04/29/18 16:00 98.0 58 18 116/56 (76) 98 04/29/18 16:00 58 04/29/18 16:00 59 Intake and Output 04/29/18 04/30/18 19:00 07:00 Intake Total 837 ml 670 ml Balance 837 ml 670 ml Intake Oral 240 ml 120 ml IV Total 597 ml 550 ml # Voids 4 1 Laboratory Tests Test 04/30/18 07:43 White Blood Count 4.6 K/UL (4.8-10.8) L Red Blood Count 3.47 M/UL (4.20-5.40) L Hemoglobin 11.0 G/DL (12.0-16.0) L Hematocrit 32.8 % (37.0-47.0) L Mean Corpuscular Volume 94 FL (80-99) Mean Corpuscular Hemoglobin 31.5 PG (27.0-31.0) H Mean Corpuscular Hemoglobin Concent 33.4 G/DL (32.0-36.0) Red Cell Distribution Width 12.9 % (11.6-14.8) Platelet Count 220 K/UL (150-450) Mean Platelet Volume 6.4 FL (6.5-10.1) L Neutrophils (%) (Auto) 48.5 % (45.0-75.0) Lymphocytes (%) (Auto) 41.0 % (20.0-45.0) Monocytes (%) (Auto) 9.2 % (1.0-10.0) Eosinophils (%) (Auto) 0.9 % (0.0-3.0) Basophils (%) (Auto) 0.4 % (0.0-2.0) Sodium Level 133 MMOL/L (136-145) L Potassium Level 4.3 MMOL/L (3.5-5.1) Chloride Level 100 MMOL/L (98-107) Carbon Dioxide Level 28 MMOL/L (21-32) Anion Gap 5 mmol/L (5-15) Blood Urea Nitrogen 11 mg/dL (7-18) Creatinine 0.7 MG/DL (0.55-1.30) Estimat Glomerular Filtration Rate > 60 mL/min (>60) Glucose Level 94 MG/DL (74-106) Calcium Level 8.9 MG/DL (8.5-10.1) Raul Zamudio MD Apr 30, 2018 15:42
[2018-04-30 16:00] VITALS: BP 144/66
[2018-04-30] MEDS: Xarelto 10mg tab ORAL SCH (16:19)
--- NOTE | 2018-04-30 19:22 | NUR ---
HAND-OFF: Report given to FLORENTINO Howard. Plan of care endorsed.
--- NOTE | 2018-04-30 19:30 | Internal Med Progress Note ---
Subjective Date of Service: Apr 30, 2018 Physician Name Javad Darnell Attending Physician Pelon Cormier MD Current Medications Medications (Trade) Dose Ordered Sig/Miles Route PRN Reason Start Time Stop Time Status Last Admin Dose Admin Aspirin (ASA) 81 mg DAILY ORAL 04/29/18 09:00 05/29/18 08:59 04/30/18 08:56 Flecainide Acetate (Tambocor) 50 mg Q12HR ORAL 04/28/18 21:00 05/28/18 20:59 04/30/18 08:56 Lisinopril (Zestril) 10 mg DAILY ORAL 04/29/18 09:00 05/29/18 08:59 04/29/18 09:19 Metoprolol Tartrate (Lopressor) 12.5 mg Q12HR ORAL 04/28/18 21:00 05/28/18 20:59 04/29/18 21:00 Pantoprazole (Protonix) 40 mg DAILY ORAL 04/30/18 09:00 05/30/18 08:59 04/30/18 08:56 Rivaroxaban (Xarelto) 20 mg QPM ORAL 04/29/18 16:30 05/29/18 16:29 04/30/18 16:19 Sodium Chloride 1,000 ml @ 50 mls/hr Q20H IV 04/28/18 18:00 05/28/18 17:59 04/30/18 10:24 Allergies: Coded Allergies: No Known Allergies (Unverified , 02/15/17) ROS Limited/Unobtainable: No Constitutional: Reports: no symptoms HEENT: Reports: no symptoms Cardiovascular: Reports: no symptoms Respiratory: Reports: no symptoms Gastrointestinal/Abdominal: Reports: no symptoms Genitourinary: Reports: no symptoms Neurologic/Psychiatric: Reports: no symptoms Subjective 67 YO F admitted with near syncope. Cover for Int Duran-Dr Cormier Objective Last Vital Signs Date Time Temp Pulse Resp B/P (MAP) Pulse Ox O2 Delivery O2 Flow Rate FiO2 04/30/18 16:00 97.4 60 19 144/66 (92) 97 04/30/18 09:00 Room Air Laboratory Tests Test 04/30/18 07:43 White Blood Count 4.6 K/UL (4.8-10.8) L Red Blood Count 3.47 M/UL (4.20-5.40) L Hemoglobin 11.0 G/DL (12.0-16.0) L Hematocrit 32.8 % (37.0-47.0) L Mean Corpuscular Volume 94 FL (80-99) Mean Corpuscular Hemoglobin 31.5 PG (27.0-31.0) H Mean Corpuscular Hemoglobin Concent 33.4 G/DL (32.0-36.0) Red Cell Distribution Width 12.9 % (11.6-14.8) Platelet Count 220 K/UL (150-450) Mean Platelet Volume 6.4 FL (6.5-10.1) L Neutrophils (%) (Auto) 48.5 % (45.0-75.0) Lymphocytes (%) (Auto) 41.0 % (20.0-45.0) Monocytes (%) (Auto) 9.2 % (1.0-10.0) Eosinophils (%) (Auto) 0.9 % (0.0-3.0) Basophils (%) (Auto) 0.4 % (0.0-2.0) Sodium Level 133 MMOL/L (136-145) L Potassium Level 4.3 MMOL/L (3.5-5.1) Chloride Level 100 MMOL/L (98-107) Carbon Dioxide Level 28 MMOL/L (21-32) Anion Gap 5 mmol/L (5-15) Blood Urea Nitrogen 11 mg/dL (7-18) Creatinine 0.7 MG/DL (0.55-1.30) Estimat Glomerular Filtration Rate > 60 mL/min (>60) Glucose Level 94 MG/DL (74-106) Calcium Level 8.9 MG/DL (8.5-10.1) Intake and Output 04/29/18 04/30/18 19:00 07:00 Intake Total 837 ml 670 ml Balance 837 ml 670 ml Intake Oral 240 ml 120 ml IV Total 597 ml 550 ml # Voids 4 1 Objective PHYSICAL EXAMINATION: GENERAL: The patient is a well-developed and well-nourished female, in no apparent distress. HEENT: Eyes, pupils are equal and responsive to light and accommodation. Extraocular movements are intact. NECK: Supple without lymphadenopathy. CHEST: Lungs are clear to auscultation bilaterally without wheezes or rales. CARDIOVASCULAR: Regular rhythm and rate. S1 and S2 are normal without murmurs, rubs, or gallops. ABDOMEN: Soft, nontender, and nondistended. Positive bowel sounds. No evidence of hepatosplenomegaly. Currently, no rebound or guarding noted. EXTREMITIES: Negative for clubbing, cyanosis, or edema. RECTAL/GENITAL: Not performed. NEUROLOGIC: Cranial nerves II through XII are grossly intact without focal deficits. Motor strength is 5/5 bilaterally. Deep tendon reflexes are 2+ plantar Assessment/Plan Assessment/Plan ASSESSMENT: This is a 67-year-old female. 1. Near syncope. 2. Hyponatremia. 3. Atrial fibrillation. 4. Hypertension. TREATMENT: 1. Near syncope. This could be secondary to hypotension. This could also be secondary to acute cerebrovascular accident versus acute myocardial infarction. A Cardiology consultation has been obtained with Dr. Raul Zamudio. An MRI of the brain, carotid duplex, and Dopplers are pending. We will follow recommendations of Cardiology. 2. Hyponatremia. The cause of hyponatremia is unknown. The patient denies recent diarrhea or vomiting. The patient is currently receiving intravenous fluids with normal saline. We will follow. 3. Atrial fibrillation. Continue flecainide as above. A Cardiology consultation has been obtained with Dr. Raul Zamudio. 4. Hypertension. Continue metoprolol as above. Javad Darnell MD Apr 30, 2018 19:30
--- NOTE | 2018-04-30 19:45 | NUR ---
NURSE NOTES: Received pt. and report from FLORENTINO Luna. Observe pt. resting in bed with both eyes open. Family member is at bedside. manager private is in placed, IV site intact, asymptomatic and patent. Bed is in the lowest position and locked. Call light within reach. No acute distress noted at this time. Will continue plan of care.
--- NOTE | 2018-04-30 19:57 | NUR ---
HAND-OFF: Report given to Bijan Lui. Plan of care endorsed
[2018-04-30 20:00] VITALS: BP 118/57
--- NOTE | 2018-04-30 22:15 | Consultation ---
DATE OF CONSULTATION: 04/30/2018 CARDIOLOGY CONSULTATION CONSULTING PHYSICIAN: Raul Zamudio M.D. REFERRING PHYSICIAN: Pelon Cormier M.D. REASON FOR CONSULTATION: Near syncope in the patient with hypertension and atrial fibrillation. HISTORY OF PRESENT ILLNESS: The patient is a 67-year-old lady that I am quite familiar with and was in my office just a month ago. The patient was originally admitted to [facility] on 02/15/2017 with newly diagnosed atrial fibrillation and presyncope. A nuclear stress at that time showed no evidence of ischemia. Zio patch for two weeks in March of 2017, a year ago, showed a heart rate between 39 and 197 with average heart rate of 74. The patient had a cardioversion at [facility] on 05/01/2017 and was sent home the same day. As per the patient, last time in office about a month ago when she had no chest pain or shortness of breath, on flecainide. Her blood pressure was also high and lisinopril had been increased to 20 mg b.i.d. The patient presented to the emergency room with a presyncopal episode and she felt dizzy on 04/28/2018 while she was here in the house. The patient did not lose consciousness and did not have any chest pain. The patient was brought to the emergency room, was admitted, and a Cardiology consultation was obtained for further evaluation. REVIEW OF SYSTEMS: Review of systems was negative other than what was mentioned in the history of present illness. PAST MEDICAL HISTORY: As mentioned above. FAMILY HISTORY: Noncontributory. SOCIAL HISTORY: She lives at home. The family does not smoke or drink alcohol. PHYSICAL EXAMINATION: VITAL SIGNS: Blood pressure 100/86, pulse is 55, respirations 18, and temperature 98.7. HEAD AND NECK: Showed no JVD. LUNGS: Clear. CARDIOVASCULAR: Shows regular S1 and S2 with no gallop or murmur. ABDOMEN: Soft. EXTREMITIES: No pitting edema. ASSESSMENT AND PLAN: 1. Lightheadedness and dizziness. The patient's blood pressure has been around 100 to 120s with the heart rate in the 50s on telemetry. I do not know at this time what is the reason. Neuro evaluation is also pending. In the meantime, I would discontinue amlodipine and keep the patient on metoprolol and flecainide. Toprol 25 mg b.i.d. and flecainide 50 b.i.d., which is the same dose that she takes at home. Her lisinopril has been decreased to 10 mg b.i.d. at this time, I will keep with the same dosage. 2. Hypertension. Continue Toprol 25. Discontinue Norvasc and currently on lisinopril 10 mg daily only. 3. History of bradycardia. Heart rate has been stable on current dose of Toprol. Thank you very much, Dr. Cormier, for allowing me to participate in the care of this patient. Please do not hesitate to contact me for any questions regarding my evaluation. The case was discussed with the patient's daughter at the bedside. It is of note that the carotid duplex showed no evidence of significant carotid stenosis and the echocardiogram showed ejection fraction of 55% with no evidence of pericardial effusion. Raul Zamudio M.D. DR: NILSON JOB#: [id number] CC:
[2018-05-01] VITALS: BP 117/58
[2018-05-01 04:00] VITALS: BP 110/56
[2018-05-01 07:27] LABS: BASOPHILS % (AUTO) 0.2 % (0.0-2.0); EOSINOPHILS % (AUTO) 0.8 % (0.0-3.0); HEMATOCRIT 32.2 % (37.0-47.0); HEMOGLOBIN 10.9 G/DL (12.0-16.0); LYMPHOCYTES % (AUTO) 33.7 % (20.0-45.0); MEAN CORPUSCULAR VOLUME 94 FL (80-99); MONOCYTES % (AUTO) 9.4 % (1.0-10.0); NEUTROPHILS % (AUTO) 55.9 % (45.0-75.0); PLATELET COUNT 217 K/UL (150-450); RED BLOOD COUNT 3.42 M/UL (4.20-5.40); RED CELL DISTRIBUTION WIDTH 12.5 % (11.6-14.8); WHITE BLOOD COUNT 6.3 K/UL (4.8-10.8)
--- NOTE | 2018-05-01 07:30 | NUR ---
HAND-OFF: Report given to FLORENTINO Luna.
--- NOTE | 2018-05-01 07:30 | NUR ---
NURSE NOTES: Received report form FLORENTINO Howard. Pt is sitting up in bed. Bed is in lowest position, side rails up X2, and call light is within reach. Will continue to monitor.
[2018-05-01 07:45] LABS: ANION GAP 7 mmol/L (5-15); BLOOD UREA NITROGEN 15 mg/dL (7-18); CARBON DIOXIDE 28 MMOL/L (21-32); CHLORIDE 99 MMOL/L (98-107); CREATININE 0.7 MG/DL (0.55-1.30); POTASSIUM 4.3 MMOL/L (3.5-5.1); SODIUM 134 MMOL/L (136-145)
[2018-05-01 08:00] VITALS: BP 119/70
[2018-05-01] MEDS: Aspirin Baby 81mg ORAL SCH (09:05)
[2018-05-01 09:06] VITALS: BP 119/70
[2018-05-01] MEDS: Lisinopril 10mg tab ORAL SCH (09:06)
[2018-05-01] MEDS: Metoprolol Tartrate 12.5mg TAB ORAL SCH (09:06)
--- NOTE | 2018-05-01 11:23 | Pulmonology Progress Note ---
Assessment/Plan Problems: (1) Acute metabolic encephalopathy (2) Hyponatremia (3) Atrial fibrillation (4) Chronic anticoagulation (5) Near syncope (6) Vertigo Assessment/Plan continue telemetry echo, Us of carotid artery, NA better, pt/o awaiting neuro evaluation cardio consult called. Subjective ROS Limited/Unobtainable: No HEENT: Repors: no symptoms Respiratory: Reports: no symptoms Allergies: Coded Allergies: No Known Allergies (Unverified , 02/15/17) Objective Last 24 Hour Vital Signs Date Time Temp Pulse Resp B/P (MAP) Pulse Ox O2 Delivery O2 Flow Rate FiO2 05/01/18 09:06 65 119/70 05/01/18 09:06 119/70 05/01/18 09:00 Room Air 05/01/18 08:00 97.9 65 17 119/70 (86) 100 05/01/18 08:00 75 05/01/18 04:00 98.1 61 17 110/56 (74) 100 05/01/18 04:00 58 05/01/18 00:00 98.0 60 18 117/58 (77) 98 05/01/18 00:00 57 04/30/18 21:27 63 118/57 04/30/18 21:10 65 04/30/18 21:05 62 04/30/18 21:00 Room Air 04/30/18 21:00 61 04/30/18 20:00 98.2 63 18 118/57 (77) 99 04/30/18 20:00 64 04/30/18 16:00 97.4 60 19 144/66 (92) 97 04/30/18 16:00 56 04/30/18 12:00 55 04/30/18 12:00 98.7 64 16 100/86 (91) 99 Intake and Output 04/30/18 05/01/18 18:59 06:59 Intake Total 660 ml Balance 660 ml Intake Oral 660 ml # Voids 3 3 General Appearance: WD/WN HEENT: normocephalic, atraumatic Respiratory/Chest: chest wall non-tender, lungs clear Breasts: no masses Cardiovascular: normal rate Abdomen: normal bowel sounds, soft, non tender Skin: no ulcers Lymphatic: no neck adenopathy Laboratory Tests 05/01/18 06:32: White Blood Count 6.3, Red Blood Count 3.42L, Hemoglobin 10.9L, Hematocrit 32.2L , Mean Corpuscular Volume 94, Mean Corpuscular Hemoglobin 31.9H, Mean Corpuscular Hemoglobin Concent 33.9, Red Cell Distribution Width 12.5, Platelet Count 217, Mean Platelet Volume 6.3L, Neutrophils (%) (Auto) 55.9, Lymphocytes ( %) (Auto) 33.7, Monocytes (%) (Auto) 9.4, Eosinophils (%) (Auto) 0.8, Basophils (%) (Auto) 0.2, Sodium Level 134L, Potassium Level 4.3, Chloride Level 99, Carbon Dioxide Level 28, Anion Gap 7, Blood Urea Nitrogen 15, Creatinine 0.7, Estimat Glomerular Filtration Rate > 60, Glucose Level 97, Calcium Level 9.0 Current Medications Medications (Trade) Dose Ordered Sig/Miles Route PRN Reason Start Time Stop Time Status Last Admin Dose Admin Aspirin (ASA) 81 mg DAILY ORAL 04/29/18 09:00 05/29/18 08:59 05/01/18 09:05 Flecainide Acetate (Tambocor) 50 mg Q12HR ORAL 04/28/18 21:00 05/28/18 20:59 05/01/18 09:05 Lisinopril (Zestril) 10 mg DAILY ORAL 04/29/18 09:00 05/29/18 08:59 05/01/18 09:06 Metoprolol Tartrate (Lopressor) 12.5 mg Q12HR ORAL 04/28/18 21:00 05/28/18 20:59 05/01/18 09:06 Pantoprazole (Protonix) 40 mg DAILY ORAL 04/30/18 09:00 05/30/18 08:59 05/01/18 09:06 Rivaroxaban (Xarelto) 20 mg QPM ORAL 04/29/18 16:30 05/29/18 16:29 04/30/18 16:19 Sodium Chloride 1,000 ml @ 50 mls/hr Q20H IV 04/28/18 18:00 05/28/18 17:59 05/01/18 06:00 Izzy Jeronimo MD May 01, 2018 11:23
--- NOTE | 2018-05-01 11:31 | Pulmonology Progress Note ---
Assessment/Plan Problems: (1) Acute metabolic encephalopathy (2) Hyponatremia (3) Atrial fibrillation (4) Chronic anticoagulation (5) Near syncope (6) Vertigo Assessment/Plan telemetry showing sinus celina 50's echo, Us of carotid artery are all done. NA better, pt/o awaiting neuro evaluation cardio consult reviewed may go home with outpatient f/u for 50% stenosis of carotid artery. Subjective ROS Limited/Unobtainable: No Constitutional: Reports: no symptoms Respiratory: Reports: no symptoms Allergies: Coded Allergies: No Known Allergies (Unverified , 02/15/17) Objective Last 24 Hour Vital Signs Date Time Temp Pulse Resp B/P (MAP) Pulse Ox O2 Delivery O2 Flow Rate FiO2 05/01/18 09:06 65 119/70 05/01/18 09:06 119/70 05/01/18 09:00 Room Air 05/01/18 08:00 97.9 65 17 119/70 (86) 100 05/01/18 08:00 75 05/01/18 04:00 98.1 61 17 110/56 (74) 100 05/01/18 04:00 58 05/01/18 00:00 98.0 60 18 117/58 (77) 98 05/01/18 00:00 57 04/30/18 21:27 63 118/57 04/30/18 21:10 65 04/30/18 21:05 62 04/30/18 21:00 Room Air 04/30/18 21:00 61 04/30/18 20:00 98.2 63 18 118/57 (77) 99 04/30/18 20:00 64 04/30/18 16:00 97.4 60 19 144/66 (92) 97 04/30/18 16:00 56 04/30/18 12:00 55 04/30/18 12:00 98.7 64 16 100/86 (91) 99 Intake and Output 04/30/18 05/01/18 18:59 06:59 Intake Total 660 ml Balance 660 ml Intake Oral 660 ml # Voids 3 3 General Appearance: WD/WN HEENT: normocephalic, atraumatic Respiratory/Chest: chest wall non-tender, lungs clear Cardiovascular: normal peripheral pulses, normal rate Abdomen: normal bowel sounds, soft, non tender Genitourinary: normal external genitalia Extremities: no clubbing Neurologic/Psychiatric: freezer person II-XII grossly normal Laboratory Tests 05/01/18 06:32: White Blood Count 6.3, Red Blood Count 3.42L, Hemoglobin 10.9L, Hematocrit 32.2L , Mean Corpuscular Volume 94, Mean Corpuscular Hemoglobin 31.9H, Mean Corpuscular Hemoglobin Concent 33.9, Red Cell Distribution Width 12.5, Platelet Count 217, Mean Platelet Volume 6.3L, Neutrophils (%) (Auto) 55.9, Lymphocytes ( %) (Auto) 33.7, Monocytes (%) (Auto) 9.4, Eosinophils (%) (Auto) 0.8, Basophils (%) (Auto) 0.2, Sodium Level 134L, Potassium Level 4.3, Chloride Level 99, Carbon Dioxide Level 28, Anion Gap 7, Blood Urea Nitrogen 15, Creatinine 0.7, Estimat Glomerular Filtration Rate > 60, Glucose Level 97, Calcium Level 9.0 Current Medications Medications (Trade) Dose Ordered Sig/Miles Route PRN Reason Start Time Stop Time Status Last Admin Dose Admin Aspirin (ASA) 81 mg DAILY ORAL 04/29/18 09:00 05/29/18 08:59 05/01/18 09:05 Flecainide Acetate (Tambocor) 50 mg Q12HR ORAL 04/28/18 21:00 05/28/18 20:59 05/01/18 09:05 Lisinopril (Zestril) 10 mg DAILY ORAL 04/29/18 09:00 05/29/18 08:59 05/01/18 09:06 Metoprolol Tartrate (Lopressor) 12.5 mg Q12HR ORAL 04/28/18 21:00 05/28/18 20:59 05/01/18 09:06 Pantoprazole (Protonix) 40 mg DAILY ORAL 04/30/18 09:00 05/30/18 08:59 05/01/18 09:06 Rivaroxaban (Xarelto) 20 mg QPM ORAL 04/29/18 16:30 05/29/18 16:29 04/30/18 16:19 Sodium Chloride 1,000 ml @ 50 mls/hr Q20H IV 04/28/18 18:00 05/28/18 17:59 05/01/18 06:00 Izzy Jeronimo MD May 01, 2018 11:31
--- NOTE | 2018-05-01 12:47 | NUR ---
NURSE NOTES: Patient was discharged per MD order. Pt stable at time of DC. Heart monitor removed and returned to [place]. Belongings with patient. Signed belongings list in chart.
--- NOTE | 2018-05-01 15:31 | Cardiac Electrophysiology PN ---
Assessment/Plan Assessment/Plan 1. Lightheadedness and dizziness. The patient's blood pressure was around 100 to 120s with the heart rate in the 50s on telemetry. Neuro evaluation is pending. Now off amlodipine and on metoprolol and flecainide. 2. Atrial fib on Toprol 25 mg b.i.d. and flecainide 50 b.i.d. and lisinopril has 10 mg b.i.d. at this time, 3. Hypertension. Continue Toprol 25. Off Norvasc and currently on lisinopril 10 mg daily only. 4. History of bradycardia. Heart rate has been stable on current dose of Toprol. LIZZETTE RN and Dr Jeronimo OK to DC Subjective Subjective No CP or SOB. DC planning in progress Objective Last 24 Hour Vital Signs Date Time Temp Pulse Resp B/P (MAP) Pulse Ox O2 Delivery O2 Flow Rate FiO2 05/01/18 09:06 65 119/70 05/01/18 09:06 119/70 05/01/18 09:00 Room Air 05/01/18 08:00 97.9 65 17 119/70 (86) 100 05/01/18 08:00 75 05/01/18 04:00 98.1 61 17 110/56 (74) 100 05/01/18 04:00 58 05/01/18 00:00 98.0 60 18 117/58 (77) 98 05/01/18 00:00 57 04/30/18 21:27 63 118/57 04/30/18 21:10 65 04/30/18 21:05 62 04/30/18 21:00 Room Air 04/30/18 21:00 61 04/30/18 20:00 98.2 63 18 118/57 (77) 99 04/30/18 20:00 64 04/30/18 16:00 97.4 60 19 144/66 (92) 97 04/30/18 16:00 56 Intake and Output 04/30/18 05/01/18 18:59 06:59 Intake Total 660 ml Balance 660 ml Intake Oral 660 ml # Voids 3 3 Laboratory Tests Test 05/01/18 06:32 White Blood Count 6.3 K/UL (4.8-10.8) Red Blood Count 3.42 M/UL (4.20-5.40) L Hemoglobin 10.9 G/DL (12.0-16.0) L Hematocrit 32.2 % (37.0-47.0) L Mean Corpuscular Volume 94 FL (80-99) Mean Corpuscular Hemoglobin 31.9 PG (27.0-31.0) H Mean Corpuscular Hemoglobin Concent 33.9 G/DL (32.0-36.0) Red Cell Distribution Width 12.5 % (11.6-14.8) Platelet Count 217 K/UL (150-450) Mean Platelet Volume 6.3 FL (6.5-10.1) L Neutrophils (%) (Auto) 55.9 % (45.0-75.0) Lymphocytes (%) (Auto) 33.7 % (20.0-45.0) Monocytes (%) (Auto) 9.4 % (1.0-10.0) Eosinophils (%) (Auto) 0.8 % (0.0-3.0) Basophils (%) (Auto) 0.2 % (0.0-2.0) Sodium Level 134 MMOL/L (136-145) L Potassium Level 4.3 MMOL/L (3.5-5.1) Chloride Level 99 MMOL/L (98-107) Carbon Dioxide Level 28 MMOL/L (21-32) Anion Gap 7 mmol/L (5-15) Blood Urea Nitrogen 15 mg/dL (7-18) Creatinine 0.7 MG/DL (0.55-1.30) Estimat Glomerular Filtration Rate > 60 mL/min (>60) Glucose Level 97 MG/DL (74-106) Calcium Level 9.0 MG/DL (8.5-10.1) Objective HEAD AND NECK: No JVD. LUNGS: Clear. CARDIOVASCULAR: Regular S1 and S2 with no gallop or murmur. ABDOMEN: Soft. EXTREMITIES: No pitting edema. Raul Zamudio MD May 01, 2018 15:30
--- NOTE | 2018-05-03 09:20 | Discharge Summary ---
Discharge Summary Discharge Summary _ DATE OF ADMISSION: 04/28/2018 DATE OF DISCHARGE: 05/01/2018 DISCHARGED BY: Dr. Cormier REASON FOR ADMISSION: 67 years old female with past medical history of atrial fibrillation, on chronic anticoagulation, hypertension, arthritis, presented to emergency department after near syncopal episode , when she felt dizzy , lightheaded and her vision became dark. Patient did not lose her consciousness. She denied chest pain or palpitations. She denied shortness of breath. She reported pain in her neck and head. Paramedics were called , and patient was subsequently transferred to emergency room for further evaluation. At that time she was already asymptomatic. She denied fever and o chills. No nausea ,no vomiting, no diaphoresis. No history of diabetes. Vital signs upon evaluation revealed low blood pressure and heart rate 0f 51. Pulse oximetry was stable on room air. No leukocytosis, mild anemia with hemoglobin 11.5, hematocrit 34.1. Urinalysis was negative for infection. Chemistry revealed acute hyponatremia with sodium 126. BUN 14, creatinine 0.6. Glucose 100. Stable LFTs. Troponin negative. EKG revealed sinus rhythm with incomplete right bundle branch block and first-degree AV block. Pro BNP 365. Chest x-ray revealed no acute cardiopulmonary pathology. Given the head preliminary revealed no acute intracranial pathology pain. Patient was admitted to telemetry floor for further management CONSULTANTS: health records technology teacher Dr. Whyte pulmonary Dr. Jeronimo [facility] COURSE: Patient admitted to telemetry floor. Patient started on gentle IV fluids with normal saline. Hyponatremia workup initiated. Blood pressure medication were optimized as per health records technology teacher. Patient was initially noted to be hypotensive and bradycardic in 50s. Amlodipine was discontinued. Blood pressure was managed with low dose of beta- ni and low-dose of LISETTE inhibitor with holding parameters. Anticoagulation for atrial fibrillation with Eliquis was continued. Blood pressure stabilized. Flecainide continued. Carotid duplex revealed moderate degree of stenosis in internal carotid artery , left side and moderate degree of stenosis external carotid artery , right side. Patient already was on anticoagulation. Orthostatic vital signs revealed no orthostatic changes. Heart rate stabilized , prior to discharge heart rate 65. Renal parameters and electrolytes were closely monitored, electrolytes corrected as needed. Nephrotoxins were avoided. Sodium 134 on day of discharge. Hyponatremia resolved with IV hydration. Hyponatremia was possibly due to dehydration and hypovolemia. Hemoglobin and hematocrit were closely monitored with goal to keep hemoglobin above 7. Anemia workup revealed stable iron , stable folate and B12 level. Prior to discharge hemoglobin 10.9, hematocrit 32.2 Stool for occult blood was negative GI prophylaxis provided. Supportive care provided. Patient was evaluated by physical therapist. Per PT evaluation, patient was independent with current functioning. No r need for physical therapy.. Unfortunately unable to obtain neurology consult . CT of the head was negative. Carotid duplex revealed moderate stenosis. Patient was already on anticoagulation. No focal deficit. Blood pressure and heart rate stabilized. Sodium improved. Lightheadedness and dizziness resolved. Near syncopal episode was probably due to combination of hypotension and acute hyponatremia. Patient was stable for discharge. Patient was instructed on return to ED precautions if symptoms recur FINAL DIAGNOSES: Acute metabolic encephalopathy Acute hyponatremia- resolved , possibly due to dehydration, Near syncope episode with lightheadedness and dizziness -probably due to hypotension , and possible acute hypo Na Atrial fibrillation Chronic anticoagulation Hypertension Bradycardia-resolved Anemia DISCHARGE MEDICATIONS: See Medication Reconciliation list. DISCHARGE INSTRUCTIONS: Patient was discharged home. Follow up with primary care provider in one week. Sabrina Maldonado NP May 03, 2018 09:20
--- NOTE | 2018-05-03 09:32 | Cardiology Report ---
APPROVED REPORT EXAM: Two-dimensional and M-mode echocardiogram with Doppler and color Doppler. INDICATION Syncope M-Mode DIMENSIONS IVSd1.2 (0.7-1.1cm)Left Atrium (MM)4.0 (1.6-4.0cm) LVDd4.7 (3.5-5.6cm)Aortic Root2.7 (2.0-3.7cm) PWd1.1 (0.7-1.1cm)Aortic Cusp Exc.1.8 (1.5-2.0cm) LVDs2.5 (2.5-4.0cm) PWs2.1 cm Normal left ventricular chamber size, systolic function and wall motion. Left ventricular ejection fraction estimated to be 55 %. Mild left ventricular hypertrophy. No evidence of pericardial effusion. All other cardiac chamber sizes are within normal limits. Focal aortic valve sclerosis with adequate cusp excursion. Thickened mitral valve leaflets with normal excursion. Mild mitral annulus and aortic root calcification. Pulmonic valve not well visualized. Normal tricuspid valve structure. IVC is normal in size with physiological collapse. A color flow and spectral Doppler study was performed and revealed: No aortic insufficiency. Mild mitral regurgitation. Normal left ventricular diastolic function. Trace tricuspid regurgitation. Tricuspid systolic velocities suggests peak right ventricular systolic pressure of 33 mmHg.
--- NOTE | 2018-05-03 09:33 | Cardiology Report ---
APPROVED REPORT EKG Measurement Heart [id number] Sinus rhythm with 1st degree AV block Incomplete right bundle branch block Borderline ECG
--- NOTE | 2018-05-03 09:34 | Diagnostic Imaging Report ---
APPROVED REPORT CPT Code: 23826 Vascular Symptoms Syncope Doppler Spectral Velocity Analysis RightLeft RIGHT SIDE: Imaging reveals no significant plaque within the common carotid artery and internal carotid artery. The Doppler spectral flow analysis indicates the degree of stenosis is moderate (50-69%) in the external carotid artery. VERTEBRAL- The vertebral artery is patent, without evidence of stenosis or steal. LEFT SIDE: Imaging reveals no significant plaque within the common carotid artery and external carotid artery. The Doppler spectral flow analysis indicates the degree of stenosis is moderate (50-69%) in the internal carotid artery and the subclavian artery. VERTEBRAL- The vertebral artery is patent, without evidence of stenosis or steal.
== END 2018-05-01 12:30 | disposition home or self-care (01) | DRG 640 ==
LOC: EMR 15:24 → 2E 15:30 → EDBEDREQ 16:06 → OBSVTOIN 17:13 → 2E 04-30 23:30
DX: E87.1 Hypo-osmolality and hyponatremia (principal); G93.41 Metabolic encephalopathy; I48.91 Unspecified atrial fibrillation; D64.9 Anemia, unspecified; I10 Essential (primary) hypertension; Z79.01 Long term (current) use of anticoagulants; E86.0 Dehydration; Z79.82 Long term (current) use of aspirin; R55 Syncope and collapse; R00.1 Bradycardia, unspecified; M19.90 Unspecified osteoarthritis, unspecified site; R42 Dizziness and giddiness; I45.10 Unspecified right bundle-branch block; I44.0 Atrioventricular block, first degree
CPT/HCPCS: 36415; 70450; 71045; 80048; 80053; 81003; 82270; 82550; 82607; 82728; 82746; 83540; 83550; 83880; 83935; 84300; 84484; 85025; 85610; 85730; 93005; 93306; 93880; 99285